=== PATIENT | male | born 1965 | race Caucasian/White ===

== ENCOUNTER → 2019-07-15 17:49 | Outpatient (CLI) | payer MEDICAID, SELFPAY ==
[2019-07-15 18:48] LABS: Basophils # 0.1 K/mm3 (0-0.2); Basophils % 1.5 % (0.1-2.0); Eosinophils # 0.4 K/mm3 (0.0-0.4); Eosinophils % 4.3 % (0.1-12.0); Hematocrit 39.3 % (42.0-52.0); Hemoglobin 12.5 g/dL (14.1-18.0); Lymphocytes # 1.8 K/mm3 (0.7-4.5); Lymphocytes % 20.5 % (10-50); Mean Corpuscular HGB Conc 31.8 g/dL (31.8-35.4); Mean Corpuscular Hemoglobin 30.9 pg (27.0-31.2); Mean Corpuscular Volume 97.3 fl (80-94); Monocytes # 0.5 K/mm3 (0.1-1.0); Monocytes % 5.5 % (1.7-9.3); Neutrophils # 5.9 K/mm3 (1.8-7.8); Neutrophils % 68.1 % (37.0-80.0); Platelet Count 282 K/mm3 (142-424); Red Blood Count 4.04 M/mm3 (4.60-6.20); Red Cell Distribution Width 13.5 % (11.5-17.5); White Blood Count 8.7 K/mm3 (4.8-10.8)
[2019-07-15 19:40] LABS: Chloride 101 mmol/L (98-107); Potassium 4.8 mmoL/L (3.5-5.1); Sodium 136 mmol/L (136-145)
[2019-07-15 19:42] LABS: Alanine Aminotransferase 18 U/L (12-78); Alkaline Phosphatase 76 U/L (38-126); Aspartate Amino Transferase 22 U/L (17-59); Bilirubin,Total 0.3 mg/dl (0.2-1.3); Blood Urea Nitrogen 15 mg/dl (9-20); Estimated Glomerular Filt Rate 101 ml/min (>60); GFR (African American) 122 ML/MIN (>60)
[2019-07-15 19:43] LABS: Albumin Level 3.9 g/dl (3.5-5.0); Albumin/Globulin Ratio 1.4 (1.1-1.8); Anion Gap 9.8 mEq/L (5-15); Calcium 9.4 mg/dl (8.4-10.2); Carbon Dioxide 30 mmol/L (22.0-30.0); Chol/HDL Ratio 2.6 (1-3.5); Cholesterol 170 mg/dl (140-200); Globulin 2.7 g/dL (1.3-3.2); Glucose 103 mg/dl (74-100); HDL Cholesterol 65 mg/dl (40-60); Total Protein,Serum 6.6 g/dl (6.3-8.2); Triglycerides 88 mg/dl (30-150); VLDL Cholesterol 18 mg/dL (0-40)
[2019-07-15 19:54] LABS: Direct LDL Cholesterol 119.87 mg/dL (100-129)
[2019-07-15 20:00] LABS: T4 (Thyroxine) 6.5 ug/dl (5.53-11.0)
[2019-07-15 20:14] LABS: Thyroid Stimulating Hormone 1.75 uIU/mL (0.465-4.68)
[2019-07-17 10:50] LABS: Testosterone,Total 460 ng/dL (264-916); Vitamin D 25 Hydroxy 13.6 ng/mL (30.0-100.0)
== END ==
PROVIDERS: Visit Provider Emergency Medicine
DX: R53.83 Other fatigue (principal); E55.9 Vitamin D deficiency, unspecified
CPT/HCPCS: 80053; 80061; 82652; 84403; 84436; 84443; 85025

== ENCOUNTER → 2019-07-24 17:04 | Outpatient (CLI) | payer MEDICAID, SELFPAY ==
[2019-07-26 05:39] LABS: Iron 69 ug/dL (38-169); UIBC 220 ug/dL (111-343)
[2019-07-26 09:25] LABS: Iron Saturation 24 % (15-55)
== END ==
PROVIDERS: Visit Provider Physician Assistant
DX: D64.9 Anemia, unspecified (principal)
CPT/HCPCS: 83540; 83550

== ENCOUNTER → 2019-07-25 13:24 | Outpatient (CLI) | payer MEDICAID, SELFPAY ==
[2019-07-25 14:00] LABS: Occult Blood,Stool Negative (Negative)
== END ==
PROVIDERS: Visit Provider Physician Assistant
DX: D64.9 Anemia, unspecified (principal); R53.83 Other fatigue
CPT/HCPCS: 82272; G0328

== ENCOUNTER → 2019-09-09 16:26 | Outpatient (CLI) | payer MEDICAID, SELFPAY ==
[2019-09-09 19:25] LABS: Coronavirus 19 IgG Antibody Negative (Negative); Coronavirus 19 IgM Antibody Negative (Negative)
== END ==
PROVIDERS: Visit Provider Emergency Medicine
DX: Z01.818 Encounter for other preprocedural examination (principal); G47.33 Obstructive sleep apnea (adult) (pediatric); G47.00 Insomnia, unspecified; R40.0 Somnolence
CPT/HCPCS: 36415; 86328

== ENCOUNTER → 2019-09-10 20:03 | Outpatient (CLI) | payer MEDICAID, SELFPAY | PROVIDERS: PCP Emergency Medicine; Visit Provider Emergency Medicine | DX: G47.33 Obstructive sleep apnea (adult) (pediatric) (principal); G47.00 Insomnia, unspecified; R40.0 Somnolence | CPT/HCPCS: 95810 ==

== ENCOUNTER 2019-10-09 09:28 | Emergency (ER) | payer MEDICAID, SELFPAY ==
[2019-10-09] VITALS (14 sets, daily range): BP systolic 95–128; BP diastolic 67–79; PULSE 81–96; RESP 12–20; TEMP 36.8; O2SAT 88–99; BMI 30.3
--- NOTE | 2019-10-09 09:52 | XR_ITS ---
PROCEDURE: XR WRIST LT MIN 3V CLINICAL INDICATION: fall Posttraumatic pain COMPARISON: No exams were available for comparison FINDINGS: No obvious fracture or dislocation. Prominent bony hypertrophic changes are present at the ulnar styloid with ununited ossification center or old fracture. IMPRESSION: No acute findings. Dictated by: Hans Macias MD 10/09/2019 11:11 Electronically signed by Hans Macias MD in [facility] 10/09/2019 11:11
--- NOTE | 2019-10-09 09:52 | XR_ITS ---
PROCEDURE: XR ELBOW LT 2V CLINICAL INDICATION: fall Posttraumatic pain COMPARISON: No exams were available for comparison FINDINGS: There is posterior subluxation the ulna with fracture noted at the base of the coracoid process. The humerus is subluxed anteriorly by 9 mm. The coracoid process fracture fragment is displaced distally by 10 mm. No other fractures are apparent however, imaging is somewhat limited due to inability to properly position the patient IMPRESSION: Fracture of the coracoid process with anterior subluxation of the humerus at the elbow joint. Dictated by: Hans Macias MD 10/09/2019 11:10 Electronically signed by Hans Macias MD in [facility] 10/09/2019 11:10
--- NOTE | 2019-10-09 10:08 | PC.NURSE ---
Radiology notified of exams needed.
--- NOTE | 2019-10-09 10:12 | PC.NURSE ---
Patient with radiology.
--- NOTE | 2019-10-09 11:08 | PC.NURSE ---
Pt to be moved from room 11 to room 2 once xray is read to do conscious sedation.
--- NOTE | 2019-10-09 11:48 | XR_ITS ---
PROCEDURE: XR ELBOW LT 2V CLINICAL INDICATION: post reduction COMPARISON: XR ELBOW LT 2V from 10/09/2019 FINDINGS: Postreduction images are obtained. There has been interval reduction of the anterior subluxation the humerus. Minimally displaced fracture noted involving the coracoid process. The the radial head however is dislocated laterally on the postreduction AP view. IMPRESSION: Reduction of the anterior subluxation of the distal humerus with fracture of the coracoid process once again noted. The radial head now appears subluxed laterally. Dictated by: Hans Macias MD 10/09/2019 12:37 Electronically signed by Hans Macias MD in [place] 10/09/2019 12:37
--- NOTE | 2019-10-09 12:16 | PC.NURSE ---
Dr. Sparrow pagealejandra.
--- NOTE | 2019-10-09 12:17 | PC.NURSE ---
Dr presley speaking with Dr Sparrow at this time.
--- NOTE | 2019-10-09 12:46 | HMH.EDFALL ---
ED Disposition Clinical Impression: Dislocation of humerus, anterior closed, Elbow fracture Disposition: Home, Self-Care Condition on Discharge: Good Instructions: DI for Moderate Sedation Additional Instructions: These call Dr. Sparrow for an appointment.[phone] Prescriptions: Hydrocodone/Acetaminophen [Hydrocodone-Acetamin 10-325 mg] 1 each PO Q6 PRN 3 Days #12 tab PRN Reason: Breakthru Moderate Pain Prescription Printed Referrals: Uriel Damon MD [Primary Care Provider] - - Critical Care Critical Care Time: No Attestation: On 10/09/19, the high probability of a clinically significant, sudden or life threatening deterioration of the following system(s) required my full and direct attention, intervention and personal management. The time I documented below is in addition to time spent performing reported procedures but includes the following listed in this critical care notation. Medical Decision Making - Medical Records Medical records reviewed: Yes: I reviewed the patient's medical records. - John Inquiry Pt receiving controlled substance: Yes John was queried for this patient: Yes Reference #:: 01 Risks and benefits of using a controlled substance: were discussed with pt by me Vital Signs: 10/09/19 09:29 10/09/19 09:59 10/09/19 10:29 Pulse Rate [Radial] 92 H 96 H 88 Respiratory Rate 20 18 18 Blood Pressure [Right Arm] 95/79 L 95/75 L 110/67 Blood Pressure Mean [Right Arm] 84 81 81 Blood Pressure Source [Right Arm] Automatic Cuff Automatic Cuff Automatic Cuff Blood Pressure Position [Right Arm] Sitting Supine Supine 02 Sat by Pulse Oximetry 99 96 98 Oxygen Delivery Method Room Air Room Air Room Air Oxygen Flow Rate (LPM) 10/09/19 10:59 10/09/19 11:29 10/09/19 11:35 Pulse Rate [Radial] 90 81 81 Respiratory Rate 18 12 12 Blood Pressure [Right Arm] 122/78 122/73 122/73 Blood Pressure Mean [Right Arm] 92 89 89 Blood Pressure Source [Right Arm] Automatic Cuff Automatic Cuff Automatic Cuff Blood Pressure Position [Right Arm] Supine Supine Sitting 02 Sat by Pulse Oximetry 99 94 L 94 L Oxygen Delivery Method Room Air Nasal Cannula Nasal Cannula Oxygen Flow Rate (LPM) 2 2 10/09/19 11:40 10/09/19 11:46 10/09/19 11:50 Pulse Rate [Radial] 81 86 94 H Respiratory Rate 18 18 14 Blood Pressure [Right Arm] 128/75 113/76 125/79 Blood Pressure Mean [Right Arm] 92 88 94 Blood Pressure Source [Right Arm] Automatic Cuff Automatic Cuff Automatic Cuff Blood Pressure Position [Right Arm] Supine Supine Supine 02 Sat by Pulse Oximetry 93 L 88 L 94 L Oxygen Delivery Method Nasal Cannula Nasal Cannula Nasal Cannula Oxygen Flow Rate (LPM) 2 2 2 10/09/19 11:55 10/09/19 11:59 10/09/19 12:00 Pulse Rate [Radial] 82 85 82 Respiratory Rate 18 14 18 Blood Pressure [Right Arm] 118/69 125/79 112/73 Blood Pressure Mean [Right Arm] 85 94 86 Blood Pressure Source [Right Arm] Automatic Cuff Automatic Cuff Automatic Cuff Blood Pressure Position [Right Arm] Supine Supine Supine 02 Sat by Pulse Oximetry 98 94 L 98 Oxygen Delivery Method Nasal Cannula Nasal Cannula Nasal Cannula Oxygen Flow Rate (LPM) 2 2 2 10/09/19 12:09 Pulse Rate [Radial] 82 Respiratory Rate 18 Blood Pressure [Right Arm] 112/73 Blood Pressure Mean [Right Arm] 86 Blood Pressure Source [Right Arm] Automatic Cuff Blood Pressure Position [Right Arm] 02 Sat by Pulse Oximetry 98 Oxygen Delivery Method Nasal Cannula Oxygen Flow Rate (LPM) 2 - Lab Data Lab results reviewed: Yes: I reviewed the patient's lab results. Orders (Tests/Meds): ED MEDICATIONS Discontinued Medications Generic Name Dose Route Start Last Admin Trade Name Morenita PRN Reason Stop Dose Admin Acetaminophen 650 mg 10/09/19 09:52 10/09/19 09:55 Acetaminophen 325mg Tab PO 10/09/19 09:53 650 mg ONCE ONE Administration Ibuprofen 600 mg 10/09/19 09:52 10/09/19 09:55 Motrin 600mg Tablet PO 10/09/19 09:53 600 mg ONCE ONE Administration Li
--- NOTE | 2019-10-09 17:43 | PC.NURSE ---
Per Dr Sparrow's request, I am calling [facility] at this time to arrange a follow up for pt.
--- NOTE | 2019-10-09 18:01 | PC.NURSE ---
Dr presley speaking with Dr Mayers at [facility] at this time.
--- NOTE | 2019-10-09 18:06 | PC.NURSE ---
speaking with Dr. Sparrow. Dr. Sparrow advises that he would like the pt to come back to the ED tomorrow at 1pm for him to come down and try and reduce his elbow.
--- NOTE | 2019-10-09 18:13 | PC.NURSE ---
called and spoke with patient and advised him Dr. Sparrow wanted him to return to the ED tomorrow at 1pm so he could come down and see him and possibly do another reduction on the patient. Pt agreeable and advises he will be here at 1pm. Pt advises he is in no pain at this time.
== END 2019-10-09 13:21 | disposition home or self-care (01) ==
PROVIDERS: Emergency Provider Family Medicine; PCP Emergency Medicine
DX: S42.492A Other displaced fracture of lower end of left humerus, initial encounter for closed fracture (principal); W11.XXXA Fall on and from ladder, initial encounter; Y92.019 Unspecified place in single-family (private) house as the place of occurrence of the external cause; S61.511A Laceration without foreign body of right wrist, initial encounter
CPT/HCPCS: 29105; 24675; 73070; 73110; 96374; 96375; 99284; J2405

== ENCOUNTER 2019-10-10 13:15 | Emergency (ER) | payer MEDICAID, SELFPAY ==
[2019-10-10] VITALS (7 sets, daily range): BP systolic 125–180; BP diastolic 80–100; PULSE 62–87; RESP 11–18; TEMP 36.7–36.9; O2SAT 97–100; BMI 30.3
--- NOTE | 2019-10-10 13:29 | PC.NURSE ---
Dr. Sparrow notified of patients arrival.
--- NOTE | 2019-10-10 13:42 | HMH.EDGENADL ---
ED Disposition Clinical Impression: Fracture dislocation of left elbow joint Qualifiers: Encounter type: initial encounter Fracture type: closed Qualified Code(s): S42.402A - Unspecified fracture of lower end of left humerus, initial encounter for closed fracture Disposition: Home, Self-Care Condition on Discharge: Good Instructions: How to Take Care of Your Splint, DI for Moderate Sedation Additional Instructions: Follow-up at orthopedics. Maintain splint and sling until then. Percocet as needed for pain. Additional instructions for CONTROLLED SUBSTANCES: You have been prescribed a medication that is a controlled substance. Controlled substances include pain medications known as opiates and sedative nerve medications known as benzodiazepines. Tramadol, fioricet, and gabapentin are also controlled substances. Some common opiates include: Codeine (such as Tylenol #3) Hydrocodone (Vicodin, Lortab, Lorcet, [place]) Oxycodone (Percocet, Percodan, Oxycodone, Oxy IR) Some common benzodiazepines include: Diazepam (Valium) Lorazepam (Ativan) Alprazolam (Xanax) Clonazepam (Klonopin) Oxazepam (Serax) All of these controlled substances are highly addictive and frequently abused. Misuse can and frequently does lead to addiction as well as overdose and . Medication should be stored in a locked cabinet or other secure storage unit. Do not store the medication in a motor vehicle. Short term supplies, 3 days or less, are prescribed because of the highly addictive nature of the medication. Any of the controlled substance medication NOT taken should be disposed of properly and NOT SAVED. The recommended method of disposing of unused medications is: Place the medicines in a sealable plastic bag. If the medicine is a solid, crush it or add water to dissolve it. Add something undesirable (cat litter, coffee grounds, etc.) Dispose of sealed bag in household trash Do not flush or pour unused medicines down a sink or drain. Controlled substances should not be shared, given away or sold. Because of the addictive nature and frequent abuse, these medications are sometimes stolen. These medications should be kept in a safe place where they cannot be stolen. Do not keep them in your car or purse. Lost or stolen prescriptions for controlled substances WILL NOT BE REFILLED in this emergency department, regardless of whether a police report was filed. Prescriptions: Oxycodone HCl/Acetaminophen [Percocet 5/325mg tablet] 1 tab PO Q6HP PRN #20 tab PRN Reason: Moderate To Severe Pain Transmission Status: Received by [facility] Referrals: Uriel Damon MD [Primary Care Provider] - - Critical Care Critical Care Time: No Attestation: On 10/10/19, the high probability of a clinically significant, sudden or life threatening deterioration of the following system(s) required my full and direct attention, intervention and personal management. The time I documented below is in addition to time spent performing reported procedures but includes the following listed in this critical care notation. Medical Decision Making - John Inquiry Pt receiving controlled substance: Yes John was queried for this patient: No Reason not queried -: Emergent pt cond-no time Risks and benefits of using a controlled substance: were discussed with pt by me Vital Signs: 10/10/19 13:25 10/10/19 15:10 Temperature 98.4 F Temperature Source Oral Pulse Rate [Radial] 76 62 Respiratory Rate 11 L 12 Blood Pressure [Right Arm] 180/100 H 154/90 H Blood Pressure Mean [Right Arm] 126 111 Blood Pressure Source [Right Arm] Automatic Cuff Automatic Cuff Blood Pressure Position [Right Arm] Sitting Sitting 02 Sat by Pulse Oximetry 97 97 Oxygen Delivery Method Room Air Room Air Orders (Tests/Meds): ED MEDICATIONS Generic Name Dose Route Start Last Admin Trade Name Freq PRN Reason Stop Dose Admin Sodium Chloride 1,000 m
--- NOTE | 2019-10-10 14:32 | PC.NURSE ---
Dr Sparrow and his student here for reduction.
--- NOTE | 2019-10-10 14:50 | XR_ITS ---
PROCEDURE: XR ELBOW RT 2V CLINICAL INDICATION: post reduction COMPARISON: XR ELBOW LT 2V from 10/09/2019 XR ELBOW LT 2V from 10/09/2019 FINDINGS: There is been reduction of the radial head dislocation. There is also reduction the anterior subluxation of the distal humerus. Minimally displaced fracture involves coracoid process medially. The study is obtained through a splint. IMPRESSION: Post reduction of the radial head anterior humeral dislocations with fracture of the coracoid process Dictated by: Hans Macias MD 10/10/2019 15:22 Electronically signed by Hans Macias MD in [place] 10/10/2019 15:22
== END 2019-10-10 15:31 | disposition home or self-care (01) ==
PROVIDERS: Emergency Provider Emergency Medicine; PCP Emergency Medicine
DX: S42.492A Other displaced fracture of lower end of left humerus, initial encounter for closed fracture (principal); W11.XXXA Fall on and from ladder, initial encounter; Y92.9 Unspecified place or not applicable; F17.290 Nicotine dependence, other tobacco product, uncomplicated
CPT/HCPCS: 29105; 24505; 73070; 96365; 96375; 99152; 99284

== ENCOUNTER → 2019-11-01 11:06 | Outpatient (CLI) | payer MEDICAID, SELFPAY | PROVIDERS: PCP Emergency Medicine; Visit Provider Specialist | DX: J44.9 Chronic obstructive pulmonary disease, unspecified (principal); R09.02 Hypoxemia | CPT/HCPCS: 94060; 94618; 94726; 94729 ==

== ENCOUNTER → 2019-11-04 12:56 | Outpatient (CLI) | payer MEDICAID, SELFPAY | PROVIDERS: PCP Emergency Medicine; Visit Provider Specialist | DX: G47.34 Idiopathic sleep related nonobstructive alveolar hypoventilation (principal); G47.30 Sleep apnea, unspecified; J44.9 Chronic obstructive pulmonary disease, unspecified | CPT/HCPCS: G0399 ==

== ENCOUNTER → 2019-12-10 08:37 | Outpatient (CLI) | payer MEDICAID, SELFPAY ==
[2019-12-10 09:11] LABS: Basophils # 0.1 K/mm3 (0-0.2); Basophils % 1.1 % (0.1-2.0); Eosinophils # 0.4 K/mm3 (0.0-0.4); Eosinophils % 5.2 % (0.1-12.0); Hematocrit 39.7 % (42.0-52.0); Hemoglobin 13.2 g/dL (14.1-18.0); Lymphocytes % 27.4 % (10-50); Mean Corpuscular HGB Conc 33.2 g/dL (31.8-35.4); Mean Corpuscular Hemoglobin 31.7 pg (27.0-31.2); Mean Corpuscular Volume 95.5 fl (80-94); Monocytes # 0.3 K/mm3 (0.1-1.0); Neutrophils # 4.6 K/mm3 (1.8-7.8); Neutrophils % 62.3 % (37.0-80.0); Platelet Count 269 K/mm3 (142-424); Red Blood Count 4.16 M/mm3 (4.60-6.20); Red Cell Distribution Width 13.3 % (11.5-17.5); White Blood Count 7.4 K/mm3 (4.8-10.8)
[2019-12-10 12:10] LABS: Ferritin 41.4 ng/ml (17.9-464)
[2019-12-10 12:52] LABS: Vitamin B12 300 pg/mL (239-931)
== END ==
PROVIDERS: Visit Provider Nurse Practitioner Family
DX: E83.10 Disorder of iron metabolism, unspecified (principal); R53.83 Other fatigue
CPT/HCPCS: 36415; 82607; 82728; 85025

== ENCOUNTER → 2020-02-18 07:51 | Outpatient (CLI) | payer MEDICAID, SELFPAY ==
[2020-02-18 11:20] LABS: Ferritin 43.5 ng/ml (17.9-464)
== END ==
PROVIDERS: Nurse Practitioner Family; PCP Emergency Medicine; Visit Provider Internal Medicine Pulmonary Disease
DX: R06.00 Dyspnea, unspecified (principal); E83.10 Disorder of iron metabolism, unspecified; G25.81 Restless legs syndrome; J44.9 Chronic obstructive pulmonary disease, unspecified; Z72.0 Tobacco use
CPT/HCPCS: 36415; 82728; 93306

== ENCOUNTER → 2020-02-27 13:27 | Outpatient (CLI) | payer MEDICAID, SELFPAY | PROVIDERS: PCP Emergency Medicine; Visit Provider Nurse Practitioner Family | DX: G47.33 Obstructive sleep apnea (adult) (pediatric) (principal); G47.00 Insomnia, unspecified; R53.83 Other fatigue; G25.81 Restless legs syndrome | CPT/HCPCS: 95806 ==

== ENCOUNTER → 2020-03-25 06:16 | Outpatient (CLI) | payer MEDICAID, SELFPAY ==
--- NOTE | 2020-03-25 | CA_ITS ---
APPROVED REPORT Exam: Pharmacologic Technologist: Mala Englishde Ht: 6 ft 1 in Wt: 236 lbs BSA: 2.31 m2 HR: 105 bpm BP: 130/84 mmHg Indications: Chest pain Medical History Medications: Pantoprazole,,,,, Albuterol,,,,, Quetiapine,,,,, Trazodone,,,,, BuPRenorphinE-Naloxone,,,,, StIOLto Respimat,,,,, Stress Test Details Test: LEXISCAN HR Resting HR: 114 bpm Max Heart Rate (APMHR): 166 bpm Max HR Achieved: 125 bpm Target HR (85% APMHR): 141 bpm % of APMHR: 75 Recovery HR: 101 bpm BP Resting BP: 130.0/84.0 mmHg Max BP: 151.0/78.0 mmHg Recovery BP: 134.0/88.0 mmHg ECG Resting ECG: Sinus tachycardia, otherwise normal Clinical Exercise duration: 04:00 min Highest Stage Achieved: Exercise capacity: 1.0 METs Stress ECG Conclusion Switched from exercise due to very limited exercise tolerance (only able to walk 1:30 on Alejandro Protocol). Symptoms: Shortness of air. No chest pain. Arrhythmias/Ectopy: None ST-T Change: No significant changes. Conclusion: Unremarkable Lexiscan stress. Myoview images reported separately. Electronically signed by : Ryan Jean-Baptiste, 03/25/2020 18:34:54
--- NOTE | 2020-03-25 06:16 | NM_ITS ---
APPROVED REPORT Exam: Nuclear Stress Test Indication: TOB USE, C.P. Patient Location: Outpatient Stress Tech: Mala Rudd [place] Tech:Mirna Arevalo, ARRT, RT (R)(N) Ht: 6 ft 1 in Wt: 231 lbs HR: 105 bpm BP: 130/84 mmHg BSA: 2.29 m2 BMI: 30.4 History: TOB USE, C.P Procedure: Patient received a 0.4 mg of intravenous Lexiscan, resting heart rate 105 bpm, resting blood pressure 130/84 mmHg, with Lexiscan maximum heart rate achived was 122 bpm which is Less than 85 % of the maximum predicted heart rate and blood pressure was 130/88 mmHg. With Lexiscan, patient denied any complaint of chest pain. Electrocardiogram Resting electrocardiogram showed sinus rhythm, with Lexiscan there is less than 1.[address] segment depression noted from the baseline EKG. The EKG portion of the Lexiscan is nondiagnostic. Cardiac Stress and Resting SPECT Images: Cardiac Stress and Resting SPECT images were obtained using technetium 99m Myoview 32.0 mCi stress and 10.68 mCi at rest. Gated SPECT for analysis of segmental wall motion and calculation of the ejection fraction also done. Cardiac stress and resting SPECT images show uniform myocardial activity without segmental perfusion abnormality, computer derived ejection fraction is 62% with no regional wall motion abnormality, right ventricle is normal size and contractility. Conclusion: 1. The EKG portion of the Lexiscan is nondiagnostic. 2. No scintigraphic evidence of reversible ischemia seen, computer derived ejection fraction is 62% with no regional wall motion abnormality, right ventricle is normal size and contractility. 3. Normal Lexiscan Myoview study. Electronically signed by : Ryan Jean-Baptiste, 03/25/2020 18:42:10
--- NOTE | 2020-03-25 08:24 | HMH.ITSHM ---
Current Home Medications as stated by this patient Bill España or patient account representative. []TRAZODONE SERIQUIL SOBOXEN INHALER OMEPRAZOLE
== END ==
PROVIDERS: PCP Emergency Medicine; Visit Provider Emergency Medicine
DX: R07.9 Chest pain, unspecified (principal); R12 Heartburn
CPT/HCPCS: 78452; 93017; A9502; J2785

== ENCOUNTER → 2020-05-22 10:51 | Outpatient (CLI) | payer MEDICAID, SELFPAY ==
[2020-05-22 11:20] LABS: Basophils # 0.1 K/mm3 (0-0.2); Basophils % 0.7 % (0.1-2.0); Eosinophils # 0.5 K/mm3 (0.0-0.4); Eosinophils % 5.3 % (0.1-12.0); Hematocrit 41.8 % (42.0-52.0); Lymphocytes # 2.4 K/mm3 (0.7-4.5); Lymphocytes % 26.2 % (10-50); Mean Corpuscular HGB Conc 31.2 g/dL (31.8-35.4); Mean Corpuscular Hemoglobin 31.2 pg (27.0-31.2); Mean Platelet Volume 7.3 fl (7.4-10.4); Monocytes # 0.4 K/mm3 (0.1-1.0); Neutrophils # 5.9 K/mm3 (1.8-7.8); Neutrophils % 63.8 % (37.0-80.0); Platelet Count 293 K/mm3 (142-424); Red Blood Count 4.18 M/mm3 (4.60-6.20); Red Cell Distribution Width 13.9 % (11.5-17.5); White Blood Count 9.2 K/mm3 (4.8-10.8)
== END ==
PROVIDERS: Visit Provider Internal Medicine Pulmonary Disease
DX: J45.909 Unspecified asthma, uncomplicated (principal)
CPT/HCPCS: 36415; 85025

== ENCOUNTER → 2020-05-27 14:02 | Outpatient (CLI) | payer MEDICAID, SELFPAY ==
[2020-05-27 14:34] LABS: D-Dimer 0.95 ug/mL (0.0-0.5)
[2020-05-29 14:02] LABS: Alpha-1-Antitrypsin 167 mg/dL (101-187)
== END ==
PROVIDERS: Visit Provider Internal Medicine Pulmonary Disease
DX: J44.9 Chronic obstructive pulmonary disease, unspecified (principal)
CPT/HCPCS: 82103; 85378

== ENCOUNTER → 2020-06-02 14:05 | Outpatient (CLI) | payer MEDICAID, SELFPAY ==
--- NOTE | 2020-06-02 14:05 | CT_ITS ---
PROCEDURE: CT ANGIO CHEST CLINCIAL INDICATION: Dyspnea / concerned for CTE-PH Shortness of breath chronic thromboembolic disease COMPARISON: No exams were available for comparison TECHNIQUE: IV Contrast: 70ML Isovue 370 Axial images obtained with sagittal and coronal reformats. All CT scans at the facility use one or more dose reduction, viz: automated exposure control, ma/kV adjustment per patient size (including targeted exams where dose is matched to indication, i.e. head), or iterative reconstruction technique. FINDINGS: HEART AND MEDIASTINAL STRUCTURES: No evidence of pulmonary embolus, aortic aneurysm, or aortic dissection.. No linear filling defects evident within the pulmonary arteries. No evidence of pulmonary arterial hypertension. No peripheral filling defects within the pulmonary arteries. The RV/LV ratio is less than 1. No evidence septal flattening or bowing. No mediastinal or hilar mass. Coronary artery calcifications are present LUNGS AND PLEURAL SPACES: Paraseptal emphysematous changes are present with COPD changes. There is a 10 mm noncalcified nodule within the right upper lobe medially in the as ago esophageal recess. The margins are fairly smooth. There are dependent changes in the lower lobes posteriorly 5 mm nodules present in the right major fissure inferiorly and may be due to small lymph node. BONY STRUCTURES: No acute bony abnormalities apparent. UPPER ABDOMEN: Fatty liver ADDITIONAL FINDINGS: There are few small axillary lymph nodes.. Gynecomastia IMPRESSION: 1. No evidence of acute pulmonary embolus. No evidence of chronic pulmonary embolus. Chronic thromboembolic disease may be better evaluated with nuclear medicine VQ scan. 2. Suspicious 10 mm nodule within the right lower lobe. If patient has old studies for comparison then would recommend comparison. There are no old exams available at this institution. If there are no old exams for comparison then, PET CT would be suggested for further evaluation. This is not in a good area for percutaneous biopsy. 3. COPD with paraseptal emphysema and dependent changes in the lung bases. 4. Coronary artery disease with coronary artery calcification Dictated by: Hans Macias MD 06/04/2020 14:39 Hans Macias MD in [place] 06/04/2020 14:39
== END ==
PROVIDERS: PCP Emergency Medicine; Visit Provider Internal Medicine Pulmonary Disease
DX: R06.00 Dyspnea, unspecified (principal); J44.9 Chronic obstructive pulmonary disease, unspecified; Z71.6 Tobacco abuse counseling; Z72.0 Tobacco use
CPT/HCPCS: 71275; Q9967

== ENCOUNTER → 2020-07-09 07:27 | Outpatient (CLI) | payer MEDICAID, SELFPAY | PROVIDERS: PCP Emergency Medicine; Visit Provider Internal Medicine Pulmonary Disease | DX: R06.09 Other forms of dyspnea (principal) | CPT/HCPCS: 94060; 94726; 94729 ==

== ENCOUNTER → 2020-09-03 06:07 | Outpatient (CLI) | payer MEDICAID, SELFPAY ==
--- NOTE | 2020-09-03 06:08 | CT_ITS ---
PROCEDURE: CT CHEST WO CON The the the the CLINICAL INDICATION: F/U Follow-up nodule COMPARISON: CT CT ANGIO CHEST from 06/02/2020 TECHNIQUE: Axial images obtained with sagittal and coronal reformats. All CT scans at the facility use one or more dose reduction, viz: automated exposure control, ma/kV adjustment per patient size (including targeted exams where dose is matched to indication, i.e. head), or iterative reconstruction technique. FINDINGS: HEART AND MEDIASTINAL STRUCTURES: Scattered small nodes are present within the mediastinum and do not appear significantly changed. There is diffuse coronary artery calcification. LUNGS AND PLEURAL SPACES: Paraseptal emphysematous changes with some scattered areas of scarring. There is a stable 10 mm nodule within the region of the superior segment of the right lower lobe. This may actually be within the major fissure and could represent a fissural node. This is not significantly changed. No new nodules are evident. BONY STRUCTURES: No acute bony abnormalities apparent. UPPER ABDOMEN: Fatty liver ADDITIONAL FINDINGS: No other significant abnormalities. IMPRESSION: Stable CT appearance of the chest. No change in the nodule within the superior segment of the right lower lobe. This may actually be a nodule within the fissure and could represent a fissural lymph node. Six-month follow-up recommended. Dictated by: Hans Macias MD 09/03/2020 14:21 Hans Macias MD in [facility] 09/03/2020 14:21
== END ==
PROVIDERS: PCP Emergency Medicine; Visit Provider Internal Medicine Pulmonary Disease
DX: R91.1 Solitary pulmonary nodule (principal)
CPT/HCPCS: 71250

== ENCOUNTER → 2020-12-15 14:16 | Outpatient (CLI) | payer MEDICAID, SELFPAY ==
[2020-12-15 14:28] LABS: Basophils # 0.2 K/mm3 (0-0.2); Basophils % 1.9 % (0.1-2.0); Eosinophils # 0.3 K/mm3 (0.0-0.4); Eosinophils % 3.3 % (0.1-12.0); Hematocrit 43.6 % (42.0-52.0); Hemoglobin 14.3 g/dL (14.1-18.0); Lymphocytes % 23.4 % (10-50); Mean Corpuscular HGB Conc 32.8 g/dL (31.8-35.4); Mean Corpuscular Hemoglobin 32.4 pg (27.0-31.2); Mean Corpuscular Volume 98.8 fl (80-94); Mean Platelet Volume 10.7 fl (7.4-10.4); Monocytes # 0.3 K/mm3 (0.1-1.0); Monocytes % 3.2 % (1.7-9.3); Neutrophils % 68.2 % (37.0-80.0); Platelet Count 342 K/mm3 (142-424); Red Blood Count 4.42 M/mm3 (4.60-6.20); Red Cell Distribution Width 13.1 % (11.5-17.5); White Blood Count 8.7 K/mm3 (4.8-10.8)
[2020-12-15 16:41] LABS: 25-OH Vitamin D, Total 40.2 ng/mL (30-100)
[2020-12-15 17:17] LABS: Alanine Aminotransferase 23 U/L (12-78); Albumin Level 4.3 g/dl (3.5-5.0); Albumin/Globulin Ratio 1.5 (1.1-1.8); Alkaline Phosphatase 92 U/L (38-126); Aspartate Amino Transferase 23 U/L (17-59); Bilirubin,Total 0.3 mg/dl (0.2-1.3); Blood Urea Nitrogen 15 mg/dl (9-20); Calcium 9.5 mg/dl (8.4-10.2); Carbon Dioxide 29 mmol/L (22.0-30.0); Chloride 103 mmol/L (98-107); Chol/HDL Ratio 5.9 (1-3.5); Cholesterol 230 mg/dl (140-200); Estimated Glomerular Filt Rate 88 ml/min (>60); GFR (African American) 106 ML/MIN (>60); Globulin 2.8 g/dL (1.3-3.2); Glucose 116 mg/dl (74-100); HDL Cholesterol 39 mg/dl (40-60); Sodium 141 mmol/L (136-145); Total Protein,Serum 7.1 g/dl (6.3-8.2); Triglycerides 149 mg/dl (30-150); VLDL Cholesterol 30 mg/dL (0-40)
[2020-12-15 17:28] LABS: Direct LDL Cholesterol 156.35 mg/dL (100-129)
[2020-12-15 17:48] LABS: Prostate Specific Ag Screen 3.2 ng/ml (0.0-4.0); Thyroid Stimulating Hormone 0.81 uIU/mL (0.465-4.68)
[2020-12-15 17:55] LABS: Free T4 (Free Thyroxine) 1.01 ng/dl (0.78-2.19)
== END ==
PROVIDERS: Visit Provider Emergency Medicine
DX: I10 Essential (primary) hypertension (principal); D64.9 Anemia, unspecified; E55.9 Vitamin D deficiency, unspecified; E66.9 Obesity, unspecified; Z68.27 Body mass index [BMI] 27.0-27.9, adult; Z12.5 Encounter for screening for malignant neoplasm of prostate
CPT/HCPCS: 80053; 80061; 82306; 84439; 84443; 85025; G0103

== ENCOUNTER → 2021-06-07 10:33 | Outpatient (CLI) | payer MEDICAID, SELFPAY ==
--- NOTE | 2021-06-07 10:33 | MR_ITS ---
FINAL REPORT CLINICAL HISTORY: back pain. rt sided leg pain, numbness, and tingling [id number]. no injury or trauma. FINDINGS: Multiplanar MR imaging of the lumbar spine was performed without contrast. On the sagittal T2-weighted images, multilevel disc degeneration and endplate changes are seen seen. There is mild leftward curvature. The vertebral alignment is otherwise normal. There is no evidence of fracture. No bony mass is identified. The conus is seen at approximately the L1 level and has an unremarkable appearance. T12-L1: Annular disc bulge with moderate bilateral neuroforaminal narrowing. L1-2: Annular disc bulge with facet arthropathy and osteophytes. There is moderate bilateral neuroforaminal narrowing. L2-3: Annular disc bulge with facet arthropathy and osteophytes. There is moderate bilateral neuroforaminal narrowing. L3-4: Annular disc bulge with facet arthropathy and osteophytes. There is a right posterolateral disc protrusion with moderate right and mild left neuroforaminal narrowing. L4-5: Annular disc bulge with facet arthropathy and osteophytes. There is moderate right and severe left neuroforaminal narrowing. There is a small right paracentral disc protrusion. L5-S1: Annular disc bulge with facet arthropathy. There is severe bilateral neuroforaminal narrowing. Partial lumbarization is noted of S1. IMPRESSION: Multilevel degenerative disc disease with severe bilateral neuroforaminal narrowing at L5-S1 and partial lumbarization of S1. Reviewed, Interpreted and Dictated by Kiran Nichols III, MD Transcribed by Zhane Dhillon Authenticated by Kiran Nichols III, MD on 06/07/2021 12:55:31 PM [facility]
== END ==
PROVIDERS: PCP Emergency Medicine; Visit Provider Emergency Medicine
DX: M54.50 Low back pain, unspecified (principal)
CPT/HCPCS: 72148; 76376

== ENCOUNTER → 2021-06-09 14:39 | Outpatient (CLI) | payer MEDICAID, SELFPAY ==
--- NOTE | 2021-06-09 14:40 | CT_ITS ---
PROCEDURE INFORMATION: Exam: CT Chest Without Contrast; Diagnostic Exam date and time: 06/09/2021 2:42 PM Age: 55 years old Clinical indication: Abnormal findings; Abnormal radiologic exam of lung or chest; Additional info: 9-month follow-up TECHNIQUE: Imaging protocol: Diagnostic computed tomography of the chest without contrast. Radiation optimization: All CT scans at this facility use at least one of these dose optimization techniques: automated exposure control; mA and/or kV adjustment per patient size (includes targeted exams where dose is matched to clinical indication); or iterative reconstruction. COMPARISON: CT CHEST WO CON 09/03/2020 6:11 AM FINDINGS: Lungs: Moderate upper lobe predominant paraseptal emphysema. Diffuse cylindrical bronchiectasis. Stable 11 mm polygonal nodule in the medial superior segment of the right lower lobe (image 96 series 3 and image 43 series 602). Diffuse chronic reticular interstitial opacification noted throughout the lung periphery. No acute interstitial or airspace disease. No other concerning pulmonary nodules. Pleural spaces: Unremarkable. No pneumothorax. No pleural effusion. Heart: There is calcification of the aortic valve annulus. There is severe atherosclerotic calcification of the coronary arteries. Heart is of normal size and morphology. No pericardial thickening or effusion. Pulmonary arteries: Normal in course and caliber. Aorta: The aorta demonstrates mild atherosclerotic calcification. No acute pathology in the aorta. Lymph nodes: No concerning mediastinal, hilar, or axillary adenopathy by CT size criteria. Spleen: The spleen demonstrates punctate calcifications, consistent with remote granulomatous organism exposure. Intestine: There is excessive colonic stool content. Bones/joints: No acute skeletal pathology. Moderate multilevel degenerative changes of the spine, as manifested by multilevel anterior osteophytes and multilevel decrease in intervertebral disc space. Soft tissues: No acute body wall soft tissue findings. Other findings: The visualized intra-abdominal structures demonstrate no acute findings. Airways remain patent. IMPRESSION: Essentially stable 11 mm nodule in the superomedial segment of the right lower lobe, highly likely to be abutting directly on the right major fissure and representing a perifissural nodule. Additionally, the morphological characteristics of the nodule also favor a perifissural nodule (polygonal in morphology). This nodule has been stable since 06/02/2020. Recommend follow-up CT Chest in 6-12 months. (References: Isabela and Kushal) REFERENCES: 1. Isabela Pena, et al. Guidelines for Management of Incidental Pulmonary Nodules Detected on CT Images: From the Fleischner Society 2017. Radiology. 2017;284(1):228-243. 2. Kushal J, et al. Updated Fleischner Society Guidelines for Managing Incidental Pulmonary Nodules: Common Questions and Challenging Scenarios. Radiographics. 2018;38(5):2442-9771.
== END ==
PROVIDERS: PCP Emergency Medicine; Visit Provider Internal Medicine Pulmonary Disease
DX: R91.8 Other nonspecific abnormal finding of lung field (principal)
CPT/HCPCS: 71250

== ENCOUNTER → 2021-07-06 12:46 | Outpatient (POV) | payer MEDICAID, SELFPAY ==
[2021-07-06 12:55] VITALS: BP 161/87; PULSE 88; RESP 18; TEMP 36.3; O2SAT 97; BMI 29.0
--- NOTE | 2021-07-06 13:10 | HMH.PMCON ---
Assessment and Plan (1) Degenerative joint disease (DJD) of lumbar spine Status: Acute Qualifiers: Spinal osteoarthritis complication: with radiculopathy Qualified Code(s): M47.26 - Other spondylosis with radiculopathy, lumbar region Category: Medical Code(s): M47.816 - Spondylosis without myelopathy or radiculopathy, lumbar region (2) Lumbar radicular pain Status: Acute Category: Medical Code(s): M54.16 - Radiculopathy, lumbar region - Assessment and plan all Dx Assessment and Plan for all problems:: This patient is very pleasant 55-year-old white male that comes today with a complaint of chronic and acute low back pain with bilateral hip and leg radicular symptoms at times. Patient describes the pain as constant, dull, aching. Patient reports the pain starts in the low back area as well as traveling into the buttocks posteriorly and upper legs. Patient denies pain in his feet. MRI shows degenerative disc disease lumbar spine multilevels. Bilateral neuroforaminal narrowing at L5-S1. I discussed in detail with the patient regarding lumbar epidural steroid injection at the L4-5 level. Patient wishes to proceed. I answered his questions regarding the injection. HPI - Data of Consult Consult date: 07/06/21 Requesting Physician: Ender Giordano CRNA - Consult Narrative Reason for consult: Back pain. Bilateral leg radicular symptoms. History of present illness: Mr. España is a 55 year old male CC: Ender Giordano CRNA [facility] History I have reviewed the patient's past medical history: Yes Medical History: Reports:: Depression, Hyperlipidemia, Hypertension Denies:: Cancer, Diabetes Mellitus Type 1, Diabetes Mellitus Type 2, MRSA *Have you ever received a pneumonia vaccine?: No *Have you received a flu vaccine this season?: Yes Other Medical History: Reports: Anemia, Other Other Surgeries: Yes: No Previous Surgery Amputation: No Fractures: Yes (lt elbow) - *Social History Smoking Status: Current every day smoker Tobacco Type: e-cigarettes # Packs/Day (cigarettes): 0 Alcohol Intake: never Substance Use Type: heroin *Occupational Status:: unemployed Housing: apartment Household Members: none *Travel in the last 8 weeks: None - Psychiatric History Pschychiatric History:: Reports:: Depression Family Hx:: Cancer, Diabetes Review of Systems - Review of Systems Review of systems:: pertinent systems reviewed and negative unless documented below Meds Home Medications Medication Instructions Recorded Confirmed Type buprenorphine 8 mg-naloxone 2 mg 2 each SUBLINGUAL DAILY each 08/17/20 07/06/21 History sublingual film albuterol sulfate 90 mcg/actuation 1 inh INHALATION QID PRN #8.5 g 05/13/21 07/06/21 Rx aerosol inhaler Atorvastatin Calcium [Lipitor 10mg 10 mg PO HS 07/06/21 07/06/21 History Tab] Carbamide Peroxide [Murine Ear Wax 5 drp OTIC Q12H 07/06/21 07/06/21 History Removal System] Neomyc/Colist/Hydrocort/Thonzn 2 drp OTIC Q4H 07/06/21 07/06/21 History [Cortisporin-Tc Ear Suspension] Pantoprazole Sodium See Rx Instructions .ROUTE .COMPLEX 07/06/21 07/06/21 History Quetiapine Fumarate See Rx Instructions .ROUTE .COMPLEX 07/06/21 07/06/21 History Sildenafil Citrate See Rx Instructions .ROUTE .COMPLEX 07/06/21 07/06/21 History Tiotropium Br/Olodaterol HCl 2 puff INHALATION DAILY 07/06/21 07/06/21 History [Stiolto Respimat] Trazodone HCl 150 mg PO HS 07/06/21 07/06/21 History diazePAM [Valium 5mg tablets] 5 mg PO TID 07/06/21 07/06/21 History lisinopriL [Lisinopril] See Rx Instructions .ROUTE .COMPLEX 07/06/21 07/06/21 History Allergies Allergy/AdvReac Type Severity Reaction Status Date / Time No Known Allergies Allergy Verified 06/16/21 10:04 Objective Vital signs: Temp Pulse Resp BP Pulse Ox 97.4 F L 88 18 161/87 H 97 07/06/21 12:55 07/06/21 12:55 07/06/21 12:55 07/06/21 12:55 07/06/21 12:55 Opioid Risk Tool - Opioid Risk
== END ==
PROVIDERS: Visit Provider Nurse Anesthetist, Certified Registered
DX: M47.26 Other spondylosis with radiculopathy, lumbar region (principal); M54.16 Radiculopathy, lumbar region
CPT/HCPCS: 99202; G0463

== ENCOUNTER 2021-07-09 10:44 | Day surgery (SDC) | payer MEDICAID, SELFPAY ==
[2021-07-09 10:56] VITALS: BP 157/82; PULSE 89; RESP 18; TEMP 36.9; O2SAT 99; BMI 29.0
[2021-07-09 11:13] VITALS: BP 137/70; PULSE 83; RESP 20; O2SAT 97
[2021-07-09 11:14] VITALS: BP 137/70; PULSE 80; RESP 20; O2SAT 97
--- NOTE | 2021-07-09 11:16 | HMH.PMPROC ---
- Procedure Date: 07/09/21 Time: 11:16 Anesthesiologist:: Ender Giordano CRNA Complications:: None Pre-procedure Diagnosis:: Disease lumbar spine multilevels. Bilateral leg radiculopathy. Post-procedure Diagnosis:: Same Indications for Procedure:: Very pleasant 55-year-old white male that has bilateral hip and leg pain associated with lumbar back pain as well. He has degenerative disc lumbar spine multilevels. He presents our clinic today for L4-5 lumbar epidural steroid injection. Procedure Details:: Procedure: Lumbar epidural steroid injection under fluoroscopy Informed consent was obtained and the risks and benefits of the procedure were explained to the patient. The patient was taken to the procedure room and noninvasive monitors placed, including noninvasive blood pressure cuff and pulse oximeter. The back was viewed using C-arm Fluoroscopy and prepped using Betadine as a cleansing solution and the L4-L5 interspace was palpated. Skin and subcutaneous tissues were anesthetized using lidocaine 1.5% and a 25-gauge needle. After this, an 18-gauge Touhy epidural needle was placed into the L4-L5 interspace and advanced using fluoroscopic guidance and loss of resistance to air until the epidural space was encountered. After confirmation of needle placement in the epidural space, with dye, a solution containing lidocaine 1.5%, 4 mL and Depo-Medrol 80 mg were incrementally injected into the lumbar epidural space. The patient tolerated the procedure well with no complications. The patient was observed in the Pain Clinic and then discharged home neurologically intact. Plan and Disposition:: Patient was discharged without incident. He will return return to the clinic for follow-up
[2021-07-09 11:22] VITALS: BP 139/78; PULSE 81; RESP 20; O2SAT 95
== END 2021-07-09 11:23 | disposition home or self-care (01) ==
LOC: SC.PAINP 10:45
PROVIDERS: PCP Emergency Medicine; Visit Provider Nurse Anesthetist, Certified Registered
DX: M51.16 Intervertebral disc disorders with radiculopathy, lumbar region (principal); E78.5 Hyperlipidemia, unspecified; I10 Essential (primary) hypertension; D64.9 Anemia, unspecified; F32.A Depression, unspecified; Z83.3 Family history of diabetes mellitus; Z80.9 Family history of malignant neoplasm, unspecified
CPT/HCPCS: 62323; J1040

== ENCOUNTER → 2021-08-16 10:14 | Outpatient (POV) | payer MEDICAID, SELFPAY ==
[2021-08-16 10:21] VITALS: BP 152/82; PULSE 78; RESP 18; TEMP 36.6; O2SAT 97; BMI 29.0
--- NOTE | 2021-08-16 13:01 | HMH.PAINSOAP ---
[facility] Pain Management SOAP Note Subjective:: Patient is a pleasant 55-year-old male who presents today for follow-up after a lumbar epidural steroid injection on July 09, 2021. Patient is currently being treated for degenerative disc disease of the lumbar spine with lumbar radiculopathy symptoms, facet arthropathy, lumbar spondylosis. After the procedure, patient had significant relief of 70 to 80% that lasted for 4 to 5 days. Denies any issues after the injection. Patient was able to increase his activity after the injection. Today, patient says that he is currently having pain around his low back that radiates to bilateral lower extremities. This is worse with any lumbar flexion, extension, and rotation. For pain, he is currently on Suboxone therapy. He sees [facility] every week. He states that the medication helps him significantly. 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 Rates pain today as 8/10. John [id number], MEQ 0. Review of Systems: General: No recent weight changes, no fever, no sleep disturbances Respiratory: No cough, no shortness of air, no recurring pulmonary infections Cardiovascular/peripheral vascular: No chest pain, no palpitations, no edema, no shortness of breath Gastrointestinal: No new onset incontinence, normal bowel movements reported Genitourinary: No new onset incontinence Musculoskeletal: Low back pain Psychiatric: [Normal mood/affect] Neurological: [Denies weakness in extremities], [denies balance issues] Objective:: Physical Exam: General: Alert and oriented x3, no acute distress, pleasant and cooperative Lungs: Respirations even and unlabored, symmetrical chest expansion Eyes: PERRL Musculoskeletal: Flexion and extension of lumbar [spine] somewhat guarded secondary to pain, [antalgic gait noted]; positive Tay Neurological: Speech clear, no gross sensory deficit Assessment:: Degenerative disc disease of lumbar spine with lumbar radiculopathy symptoms Lumbar spondylosis Lumbar facet arthropathy Plan:: IMAGING: Ordering Physician: Uriel Damon MD Date of Service: 06/07/21 Procedure(s): MR lumbar spine wo con Accession Number(s): [id number] cc: Uriel Damon MD; Kiran Nichols MD~ FINAL REPORT CLINICAL HISTORY: back pain. rt sided leg pain, numbness, and tingling [id number]. no injury or trauma. FINDINGS: Multiplanar MR imaging of the lumbar spine was performed without contrast. On the sagittal T2-weighted images, multilevel disc degeneration and endplate changes are seen seen. There is mild leftward curvature. The vertebral alignment is otherwise normal. There is no evidence of fracture. No bony mass is identified. The conus is seen at approximately the L1 level and has an unremarkable appearance. T12-L1: Annular disc bulge with moderate bilateral neuroforaminal narrowing. L1-2: Annular disc bulge with facet arthropathy and osteophytes. There is moderate bilateral neuroforaminal narrowing. L2-3: Annular disc bulge with facet arthropathy and osteophytes. There is moderate bilateral neuroforaminal narrowing. L3-4: Annular disc bulge with facet arthropathy and osteophytes. There is a right posterolateral disc protrusion with moderate right and mild left neuroforaminal narrowing. L4-5: Annular disc bulge with facet arthropathy and osteophytes. There is moderate right and severe left neuroforaminal narrowing. There is a small right paracentral disc protrusion. L5-S1: Annular disc bulge with facet arthropathy. There is severe bilateral neuroforaminal narrowing. Partial lumbarization is noted of S1. IMPRESSION: Multilevel degenerative disc disease with severe bilateral neuroforaminal narrowing at L5-S1 and partial lumbarization of S1. Reviewed, Interpreted and Dictated by Kiran Nichols III, MD Transcribed by Zhane Dhillon Authenticated by Kiran Nichols III, MD on 06/07/2021 12:55:31 PM [facility]
== END ==
PROVIDERS: Visit Provider Student in an Organized Health Care Education/Training Program
DX: M51.16 Intervertebral disc disorders with radiculopathy, lumbar region (principal); M47.896 Other spondylosis, lumbar region; M54.06 Panniculitis affecting regions of neck and back, lumbar region
CPT/HCPCS: 99212; G0463

== ENCOUNTER 2021-08-20 11:11 | Day surgery (SDC) | payer MEDICAID, SELFPAY ==
[2021-08-20 11:30] VITALS: BP 149/84; PULSE 74; RESP 20; TEMP 36.6; O2SAT 99; BMI 29.0
[2021-08-20 11:34] VITALS: BP 143/83; PULSE 72; RESP 18; O2SAT 95
[2021-08-20 11:35] VITALS: BP 143/83; PULSE 72; RESP 18; O2SAT 96
[2021-08-20 11:40] VITALS: BP 119/86; PULSE 71; RESP 18; O2SAT 100
--- NOTE | 2021-08-20 11:49 | P.PCN_ITS ---
- Procedure Date: 08/20/21 Time: 11:49 Anesthesiologist:: Cristi Strong MD Complications:: None Pre-procedure Diagnosis:: Degenerative disc disease of lumbar spine with lumbar spondylosis and lumbar facet arthropathy Post-procedure Diagnosis:: Same Indications for Procedure:: Patient is a pleasant 55-year-old white male who we are treating for low back pain with lumbar spondylosis and lumbar facet arthropathy. He has increasing pain over the facet joints of L4-5 and L5-S1. There is increased pain with extension and twisting. We will plan on bilateral lumbar medial branch block/facet joint injections of L4-5 and L5-S1 today. Procedure Details:: Lumbar medial branch block Informed consent was obtained and the risks and benefits of the procedure was ex plained to the patient. The back was prepped using ChloraPrep. The skin and subcutaneous tissues were anesthetized using lidocaine. I placed 22-gauge spinal needles into the facet joint/medial branches of L4-L5 and L5-S1 bilaterally. Needle placement was confirmed with dye. After this we injected 3 mL bupivacaine 0.25% and Depo-Medrol 20 mg into each facet joint/medial branch of L4-L5 and L5-S1 bilaterally. We used a total of 80 mg Depo-Medrol for both levels bilaterally. The patient tolerated the procedure well with no complications. Plan and Disposition:: We will follow-up with him in 2 weeks. Will reevaluate symptoms at that time. Successful we will plan on RF ablation to the facet joint/medial branch blocks of L4-5 and L5-S1 bilaterally.
== END 2021-08-20 11:40 | disposition home or self-care (01) ==
LOC: SC.PAINP 11:12
PROVIDERS: PCP Emergency Medicine; Visit Provider Anesthesiology
DX: M51.36 Other intervertebral disc degeneration, lumbar region (principal); M47.816 Spondylosis without myelopathy or radiculopathy, lumbar region; M54.06 Panniculitis affecting regions of neck and back, lumbar region; E78.5 Hyperlipidemia, unspecified; I10 Essential (primary) hypertension; F32.A Depression, unspecified; D64.9 Anemia, unspecified; Z72.0 Tobacco use; F11.11 Opioid abuse, in remission; J44.9 Chronic obstructive pulmonary disease, unspecified; M19.90 Unspecified osteoarthritis, unspecified site; Z86.14 Personal history of Methicillin resistant Staphylococcus aureus infection
CPT/HCPCS: 64493; 64494; J1030; Q9966

== ENCOUNTER → 2021-08-31 12:49 | Outpatient (POV) | payer MEDICAID, SELFPAY ==
[2021-08-31 13:10] VITALS: BP 156/84; PULSE 87; RESP 18; TEMP 36.4; O2SAT 96; BMI 29.0
--- NOTE | 2021-08-31 13:44 | HMH.PAINSOAP ---
[facility] Pain Management SOAP Note Subjective:: Patient is a pleasant 55-year-old male who presents today for follow-up after a diagnostic medial branch block at L4-L5 and L5-S1 on August 20, 2021. Patient is current being treated for degenerative disc disease of lumbar spine, lumbar facet arthropathy, lumbar spondylosis, lumbar radiculopathy. After the injection, patient had relief for a few hours but he was back to his baseline pain after a day. He had more relief after his lumbar epidural steroid injection that lasted for about a week. He cannot tolerate any prolonged activities such as standing and walking. Pain is worse with any lumbar flexion, extension, and rotation. For pain, he is currently on Suboxone therapy. [facility] He states that this medication is helping him significantly. He says that he has been compliant with his treatments. Rates pain today as 9/10. John [id number], MEQ 0. Review of Systems: General: No recent weight changes, no fever, no sleep disturbances Respiratory: No cough, no shortness of air, no recurring pulmonary infections Cardiovascular/peripheral vascular: No chest pain, no palpitations, no edema, no shortness of breath Gastrointestinal: No new onset incontinence, normal bowel movements reported Genitourinary: No new onset incontinence Musculoskeletal: Low back pain Psychiatric: [Normal mood/affect] Neurological: [Denies weakness in extremities], [denies balance issues] Objective:: Physical Exam: General: Alert and oriented x3, no acute distress, pleasant and cooperative Lungs: Respirations even and unlabored, symmetrical chest expansion Eyes: PERRL Musculoskeletal: Flexion and extension of lumbar [spine] somewhat guarded secondary to pain, [antalgic gait noted] Neurological: Speech clear, no gross sensory deficit Assessment:: Degenerative disease of lumbar spine with lumbar radiculopathy symptoms, facet arthropathy, lumbar spondylosis Plan:: Patient had relief for less than a day after the diagnostic medial branch block at L4-L5 and L5-S1. Patient had more relief after the lumbar epidural steroid injection that lasted for about 4 to 5 days. He rates his pain today as 9 out of 10. He continues to go to a chiropractor about 3 times a week for adjustments. He does get relief from these adjustments. He has been managing his pain with Suboxone therapy and has been compliant with his treatment. We will do a repeat lumbar epidural steroid injection. Risks and benefits of the procedure have been explained to the patient. Patient would like to proceed with the procedure. If the patient gets significant but temporary relief after the lumbar epidural steroid injection, I discussed with the patient that he might be a good candidate for spinal cord stimulator therapy. He is agreeable to this. I have also discussed with him that he we will need a psychiatric evaluation before any implants. Patient may need to get a letter from the social media sr strategy manager that he is seeing now at the Suboxone clinic. He can then bring it to his psych eval appt. Patient has been instructed to contact the clinic with any concerns before the next appointment. Dr. Strong has reviewed this note and agrees with this plan of care. This note was dictated using voice recognition software and make contain errors or omissions. [facility] History Medical History: Reports:: Depression, Hyperlipidemia, Hypertension Denies:: Cancer, Diabetes Mellitus Type 1, Diabetes Mellitus Type 2, MRSA *Have you ever received a pneumonia vaccine?: No *Have you received a flu vaccine this season?: Yes Other Medical History: Reports: Anemia, Arthritis, Other Other Surgeries: Yes: No Previous Surgery Amputation: No Fractures: Yes (lt elbow) - *Social History Smoking Status: Current every day smoker Tobacco Type: e-cigarettes # Packs/Day (cigarettes): 1 Alcohol Intake: never Substance Use Type: former substance user, heroin *Occupational Status
== END ==
PROVIDERS: Visit Provider Student in an Organized Health Care Education/Training Program
DX: M51.16 Intervertebral disc disorders with radiculopathy, lumbar region (principal); M47.26 Other spondylosis with radiculopathy, lumbar region
CPT/HCPCS: 99212; G0463

== ENCOUNTER → 2021-09-06 10:33 | Outpatient (POV) | payer MEDICAID, SELFPAY ==
[2021-09-06 11:56] VITALS: BP 125/77; PULSE 99; RESP 17; TEMP 36.6; O2SAT 94; BMI 29.0
--- NOTE | 2021-09-06 12:40 | HMH.PAINSOAP ---
[facility] Pain Management SOAP Note Subjective:: Patient is a pleasant 55-year-old male who presents today for follow-up. Patient is current being treated for degenerative disc disease of lumbar spine, lumbar facet arthropathy, lumbar spondylosis, lumbar radiculopathy. I saw this patient last for follow-up after a diagnostic medial branch block at L4-L5 and L5-S1 bilaterally on August 20, 2021. He states that this injection did provided him with less than 24 hours of relief. Previously, he had a lumbar epidural steroid injection that provided almost a week of relief. When I saw him last , I had scheduled the patient for a lumbar epidural steroid injection at L4-L5 and he was scheduled to get this injection done this coming Friday, September 10, 2021. Today, patient states that he has been having worsening pain since and he has been unable to sit, lay down, standing, and walk. He denies any recent falls or traumas. He denies any loss of bowel or bladder functions. He has been unable to sleep for the last 3 nights because of the pain. He for pain, he has been taking [id number] medication. He is also on Suboxone therapy. He rates his pain today as 10 out of 10. Review of Systems: General: No recent weight changes, no fever, no sleep disturbances Respiratory: No cough, no shortness of air, no recurring pulmonary infections Cardiovascular/peripheral vascular: No chest pain, no palpitations, no edema, no shortness of breath Gastrointestinal: No new onset incontinence, normal bowel movements reported Genitourinary: No new onset incontinence Musculoskeletal: Low back pain, bilateral hip pain Psychiatric: [Normal mood/affect] Neurological: [Denies weakness in extremities], [denies balance issues] Objective:: Physical Exam: General: Alert and oriented x3, no acute distress, pleasant and cooperative Lungs: Respirations even and unlabored, symmetrical chest expansion Eyes: PERRL Musculoskeletal: Flexion and extension of lumbar [spine] somewhat guarded secondary to pain, [antalgic gait noted]; bilateral SI are positive for BIJAL, Berta's, Elizabeth's, Gaenslen's, compression, and distraction. Neurological: Speech clear, no gross sensory deficit Assessment:: Degenerative disc disease of lumbar spine with lumbar radiculopathy symptoms, sacroiliitis Plan:: Patient presents today with worsening low back pain that radiates to bilateral lower extremities. His pain has been very severe in the last 3 to 4 days. He has not been able to sleep for the past 3 nights. He takes Suboxone on [id number]-[id number] medications for pain. I will start the patient on prednisone 20 mg twice a day for 5 days, diclofenac 75 mg twice a day for 14 days, tizanidine 4 mg 3 times a day for 14 days. We will cancel the patient's lumbar epidural steroid injection. Patient has extreme point of tenderness in bilateral SI joints. Patient has positive bilateral SI exam. We will schedule the patient for a bilateral SI injection in 3 weeks. Patient has been instructed to contact the clinic with any concerns before the next appointment. Dr. Strong has reviewed this note and agrees with this plan of care. This note was dictated using voice recognition software and make contain errors or omissions. [facility] History Medical History: Reports:: Depression, Hyperlipidemia, Hypertension Denies:: Cancer, Diabetes Mellitus Type 1, Diabetes Mellitus Type 2, MRSA *Have you ever received a pneumonia vaccine?: No *Have you received a flu vaccine this season?: Yes Other Medical History: Reports: Anemia, Arthritis, Other Other Surgeries: Yes: No Previous Surgery Amputation: No Fractures: Yes (lt elbow) - *Social History Smoking Status: Current every day smoker Tobacco Type: e-cigarettes # Packs/Day (cigarettes): 1 Alcohol Intake: never Substance Use Type: former substance user, heroin *Occupational Status:: other Housing: apartment Household Members: none *Travel in the last 8 we
== END ==
PROVIDERS: Visit Provider Student in an Organized Health Care Education/Training Program
DX: M51.16 Intervertebral disc disorders with radiculopathy, lumbar region (principal); M46.1 Sacroiliitis, not elsewhere classified; M47.26 Other spondylosis with radiculopathy, lumbar region
CPT/HCPCS: 99212; G0463

== ENCOUNTER → 2021-09-13 09:58 | Outpatient (POV) | payer MEDICAID, SELFPAY ==
[2021-09-13 10:12] VITALS: BP 151/82; PULSE 90; RESP 18; TEMP 36.8; O2SAT 97; BMI 29.0
--- NOTE | 2021-09-13 11:58 | HMH.PAINSOAP ---
[facility] Pain Management SOAP Note Subjective:: Patient is a pleasant 55-year-old male presents today for follow-up. Patient is current being treated for degenerative disc disease of lumbar spine, lumbar facet arthropathy, lumbar spondylosis, lumbar radiculopathy. In the past, we have done diagnostic medial branch block at L4-L5 and L5-S1 bilaterally the provided minimal relief. Then, we did a lumbar epidural steroid injection that provided a week of relief. I saw him last week and was complaining of significant low back pain and has been unable to get up from a sitting position. Pain is worse with any prolonged activity such as standing and walking. He has been sleeping on the couch/recliner because he cannot lay flat. Since he was having acute pain, I started him on prednisone for 5 days, diclofenac, and tizanidine. Even with these medications, the patient only had minimal relief. He says that the tizanidine is helping him sleep. He rates his pain today as 10 out of 10. He is also on Suboxone therapy. John [id number] with an active morphine equivalent of 0. Review of Systems: General: No recent weight changes, no fever, no sleep disturbances Respiratory: No cough, no shortness of air, no recurring pulmonary infections Cardiovascular/peripheral vascular: No chest pain, no palpitations, no edema, no shortness of breath Gastrointestinal: No new onset incontinence, normal bowel movements reported Genitourinary: No new onset incontinence Musculoskeletal: Low back pain Psychiatric: [Normal mood/affect] Neurological: [Denies weakness in extremities], [denies balance issues] Objective:: Physical Exam: General: Alert and oriented x3, no acute distress, pleasant and cooperative Lungs: Respirations even and unlabored, symmetrical chest expansion Eyes: PERRL Musculoskeletal: Flexion and extension of lumbar [spine] somewhat guarded secondary to pain, [antalgic gait noted] Neurological: Speech clear, no gross sensory deficit Assessment:: Degenerative disc disease of lumbar spine with lumbar radiculopathy symptoms, lumbar facet arthropathy, lumbar spondylosis Plan:: Imaging: CLINICAL HISTORY: back pain. rt sided leg pain, numbness, and tingling [id number]. no injury or trauma. FINDINGS: Multiplanar MR imaging of the lumbar spine was performed without contrast. On the sagittal T2-weighted images, multilevel disc degeneration and endplate changes are seen seen. There is mild leftward curvature. The vertebral alignment is otherwise normal. There is no evidence of fracture. No bony mass is identified. The conus is seen at approximately the L1 level and has an unremarkable appearance. T12-L1: Annular disc bulge with moderate bilateral neuroforaminal narrowing. L1-2: Annular disc bulge with facet arthropathy and osteophytes. There is moderate bilateral neuroforaminal narrowing. L2-3: Annular disc bulge with facet arthropathy and osteophytes. There is moderate bilateral neuroforaminal narrowing. L3-4: Annular disc bulge with facet arthropathy and osteophytes. There is a right posterolateral disc protrusion with moderate right and mild left neuroforaminal narrowing. L4-5: Annular disc bulge with facet arthropathy and osteophytes. There is moderate right and severe left neuroforaminal narrowing. There is a small right paracentral disc protrusion. L5-S1: Annular disc bulge with facet arthropathy. There is severe bilateral neuroforaminal narrowing. Partial lumbarization is noted of S1. IMPRESSION: Multilevel degenerative disc disease with severe bilateral neuroforaminal narrowing at L5-S1 and partial lumbarization of S1. Reviewed, Interpreted and Dictated by Kiran Nichols III, MD Transcribed by Zhane Dhillon Authenticated by Kiran Nichols III, MD on 06/07/2021 12:55:31 PM [facility] Plan: Patient presents today with worsening low back pain that radiates to bilateral lower extremities. I have tried him on prednisone for
== END ==
PROVIDERS: Visit Provider Student in an Organized Health Care Education/Training Program
DX: M51.16 Intervertebral disc disorders with radiculopathy, lumbar region (principal); M47.26 Other spondylosis with radiculopathy, lumbar region
CPT/HCPCS: 99212; G0463

== ENCOUNTER → 2021-09-17 11:32 | Outpatient (POV) | payer MEDICAID, SELFPAY ==
--- NOTE | 2021-09-17 12:19 | P.CONS_ITS ---
[facility] Pain Management SOAP Note Subjective:: This patient is a 55-year-old white male who we have been treating for low back pain and right leg pain. He has had lumbar pleural steroid injections and medial branch blocks in the past. The medial branch blocks only provided minimal relief. He got a weeks relief from the lumbar pleural steroid in jection. We are awaiting insurance approval for repeat lumbar epidural steroid injection. He has been on diclofenac and tizanidine which do help some. However, he still has excruciating pain in his back and down his right leg. He is also currently on Suboxone therapy given to him by Dr. Keane. I have talked to him about long-term options including intrathecal therapy. I do believe he would be a good candidate for a bupivacaine intrathecal pain pump which is nonnarcotic. He can continue with his Suboxone therapy with a bupivacaine pain pump. Objective:: Alert and oriented x3 no acute distress. Patient seen sitting in a wheelchair. He does need assistance while walking. He uses a walker at home. Motor strength of the lower extremities is 5/5. There is no gross sensory deficit. Assessment:: Degenerative disease of lumbar spine with lumbar radiculopathy symptoms Plan:: Because the patient is on Suboxone therapy we cannot write him any controlled substances. He will continue with his Suboxone therapy. We will renew his diclofenac and tizanidine. We are awaiting approval for a lumbar pleural s teroid injection. He did get 1 weeks relief from his previous lumbar epidural steroid injection. I do believe he would be a good candidate for intrathecal therapy. We will order psychological evaluation and seek approval for intrathecal pump trial with bupivacaine. [facility] History Medical History: Reports:: Depression, Hyperlipidemia, Hypertension Denies:: Cancer, Diabetes Mellitus Type 1, Diabetes Mellitus Type 2, MRSA *Have you ever received a pneumonia vaccine?: No *Have you received a flu vaccine this season?: Yes Other Medical History: Reports: Anemia, Arthritis, Other Other Surgeries: Yes: No Previous Surgery Amputation: No Fractures: Yes (lt elbow) - *Social History Smoking Status: Current every day smoker Tobacco Type: e-cigarettes # Packs/Day (cigarettes): 1 Alcohol Intake: never Substance Use Type: former substance user, heroin *Occupational Status:: other Housing: apartment Household Members: none *Travel in the last 8 weeks: Inside the [facility] - Psychiatric History Pschychiatric History:: Reports:: Depression Family Hx:: No significant family history
[2021-09-17 12:41] VITALS: BP 148/88; PULSE 80; RESP 20; TEMP 36.7; O2SAT 95; BMI 29.0
== END ==
PROVIDERS: PCP Emergency Medicine; Visit Provider Anesthesiology
DX: M51.16 Intervertebral disc disorders with radiculopathy, lumbar region (principal)
CPT/HCPCS: 99212; G0463

== ENCOUNTER → 2021-10-07 14:22 | Outpatient (POV) | payer MEDICAID, SELFPAY ==
[2021-10-07 14:47] VITALS: BP 126/78; PULSE 94; RESP 20; TEMP 37; O2SAT 95; BMI 29.0
--- NOTE | 2021-10-07 15:21 | HMH.PAINSOAP ---
[facility] Pain Management SOAP Note Subjective:: Patient is pleasant 55-year-old white male who is here for follow-up today. We are currently treating him for degenerative disc disease of lumbar spine with lumbar radiculopathy symptoms. Today he rates his pain a 6 out of 10. He describes the pain as a constant sharp pain that is worse with activity. He states it is worse in the morning. Medications do make it better. He currently manages his pain with [id number]-caybnhv ibuprofen and muscle relaxers with minimal relief. He states the only thing that really helps is his nerve medication because it makes him go to sleep. Patient has had 2 lumbar epidural steroid injections, in the past. He states the medial branch block only gave minimal relief however the lumbar epidurals did give relief around 60% lasting a week or so. He has also tried topical application of Biofreeze and lidocaine patches that have not helped. He denies any new trauma or injury. Patient denies any change in the location or type of pain. Patient has seen a chiropractor but stated that it did not help. He has also tried at home stretching and exercise for more than 6 weeks with no relief. Patient would like to be scheduled for a repeat injection at this time. He is currently on Suboxone therapy given to him by Dr. Keane. His John is [id number] with a morphine equivalent of 0 it has been reviewed and is appropriate. Review of Systems: General: No recent weight changes, no fever, no sleep disturbances Respiratory: No cough, no shortness of air, no recurring pulmonary infections Cardiovascular/peripheral vascular: No chest pain, no palpitations, no edema, no shortness of breath Gastrointestinal: No new onset incontinence, normal bowel movements reported Genitourinary: No new onset incontinence Musculoskeletal: Back pain Psychiatric: [Normal mood/affect] Neurological: [Denies weakness in extremities], [denies balance issues] Objective:: Physical Exam: General: Alert and oriented x3, no acute distress, pleasant and cooperative Lungs: Respirations even and unlabored, symmetrical chest expansion Eyes: PERRL Musculoskeletal: Flexion and extension of lumbar [spine] somewhat guarded secondary to pain, [antalgic gait noted] Neurological: Speech clear, no gross sensory deficit Assessment:: Generative disc disease of lumbar spine with lumbar radiculopathy symptoms Plan:: Patient did have significant relief with his prior lumbar epidural steroid injections. He stated he had about 60% improvement in his pain. He was denied his last injection for his lumbar epidural. We will try to schedule him for a repeat lumbar epidural steroid injection at this time. Risk and benefits have been discussed with the patient. He would like to proceed forward. We will schedule him for a LESI L4-L5. Dr. JESSICA Olivera has talked to the patient regarding long-term options including intrathecal therapy. He stated he would be a good candidate for bupivacaine as a nonnarcotic in order to continue his Suboxone therapy. Patient has been instructed to contact the clinic with any concerns before the next appointment. Dr. Strong has reviewed this note and agrees with this plan of care. This note was dictated using voice recognition software and make contain errors or omissions. [facility] History I have reviewed the patient's past medical history: Yes Medical History: Reports:: Depression, Hyperlipidemia, Hypertension Denies:: Cancer, Diabetes Mellitus Type 1, Diabetes Mellitus Type 2, MRSA *Have you ever received a pneumonia vaccine?: No *Have you received a flu vaccine this season?: Yes Other Medical History: Reports: Anemia, Arthritis, Other Other Surgeries: Yes: No Previous Surgery Amputation: No Fractures: Yes (lt elbow) - *Social History Smoking Status: Current every day smoker Tobacco Type: e-cigarettes # Packs/Day (cigarettes): 1 Alcohol Intake: never Substance Use Type: former substance user, heroin *Occupati
== END ==
PROVIDERS: Visit Provider Student in an Organized Health Care Education/Training Program
DX: M51.16 Intervertebral disc disorders with radiculopathy, lumbar region (principal); M19.90 Unspecified osteoarthritis, unspecified site; Z72.0 Tobacco use
CPT/HCPCS: 99212; G0463

== ENCOUNTER 2021-10-13 23:22 | Emergency (ER) | payer MEDICAID, SELFPAY ==
--- NOTE | 2021-10-13 23:19 | ECG_ITS ---
APPROVED REPORT Exam: Resting ECG HR:103 bpm ECG Measurements Heart Rate 103 AXES HI 180 P 42 QRSd 162 QRS -4 QT 382 T 108 QTc 442 Conclusion SINUS TACHYCARDIA LEFT BUNDLE BRANCH BLOCK [120+ ms QRS DURATION, 80+ ms Q/S IN V1/V2, 85+ ms R IN I/aVL/V5/V6] ABNORMAL ECG UNCONFIRMED REPORT Electronically signed by : John Dewitt MD 10/14/2021 10:15:27
[2021-10-13 23:23] VITALS: BP 134/81; PULSE 105; RESP 18; TEMP 37.5; O2SAT 95; BMI 29.0
--- NOTE | 2021-10-13 23:45 | XR_ITS ---
PROCEDURE INFORMATION: Exam: XR Chest Exam date and time: 10/13/2021 11:47 PM Age: 55 years old Clinical indication: Pain; On breathing; Additional info: lung pain TECHNIQUE: Imaging protocol: Radiologic exam of the chest. Views: 2 views. COMPARISON: CT CHEST WO CON 06/09/2021 2:42 PM FINDINGS: Lungs: Opacities are noted at the lung bases, left greater than right. Pleural spaces: Unremarkable. No pleural effusion. No pneumothorax. Heart/Mediastinum: Unremarkable. No cardiomegaly. Bones/joints: Unremarkable. IMPRESSION: Bibasilar linear opacities may reflect atelectasis or developing pneumonitis. Aspiration is not excluded.
[2021-10-13 23:51] LABS: Coronavirus 19, PCR Not Detected (NotDetected); Influenza A, PCR Not Detected (NotDetected); Influenza B, PCR Not Detected (NotDetected)
--- NOTE | 2021-10-13 23:54 | PC.NURSE ---
Pt gone to RAD for XRAY
[2021-10-13 23:55] LABS: Basophils # 0.1 K/mm3 (0-0.2); Basophils % 0.6 % (0.1-2.0); Eosinophils # 0.2 K/mm3 (0.0-0.4); Eosinophils % 1.7 % (0.1-12.0); Hematocrit 37.8 % (42.0-52.0); Hemoglobin 12.9 g/dL (14.1-18.0); Lymphocytes # 1.9 K/mm3 (0.7-4.5); Lymphocytes % 16.9 % (10-50); Mean Corpuscular Hemoglobin 30.6 pg (27.0-31.2); Mean Platelet Volume 6.9 fl (7.4-10.4); Monocytes # 0.4 K/mm3 (0.1-1.0); Monocytes % 3.9 % (1.7-9.3); Neutrophils # 8.8 K/mm3 (1.8-7.8); Neutrophils % 76.9 % (37.0-80.0); Platelet Count 270 K/mm3 (142-424); Red Cell Distribution Width 13.4 % (11.5-17.5); White Blood Count 11.4 K/mm3 (4.8-10.8)
--- NOTE | 2021-10-13 23:57 | PC.NURSE ---
Pt back from RAD
[2021-10-13 23:59] LABS: Anion Gap 10.9 mEq/L (5-15); Blood Urea Nitrogen 13 mg/dl (9-20); Calcium 9.3 mg/dl (8.4-10.2); Carbon Dioxide 28 mmol/L (22.0-30.0); Chloride 101 mmol/L (98-107); Creatinine Clearance Estimated 118 mL/min (50-200); Estimated Glomerular Filt Rate 78 ml/min (>60); GFR (African American) 94 ML/MIN (>60); Glucose 161 mg/dl (74-100); Magnesium 1.9 mg/dl (1.6-2.3); Potassium 3.9 mmoL/L (3.5-5.1); Sodium 136 mmol/L (136-145)
[2021-10-14] VITALS (7 sets, daily range): BP systolic 107–165; BP diastolic 70–87; PULSE 82–99; RESP 18; TEMP 37.2; O2SAT 93–94
[2021-10-14 00:04] LABS: C-Reactive Protein 35.3 mg/L (0-4)
[2021-10-14 00:18] LABS: Procalcitonin 0.085 ng/mL (0.0-2.0); Troponin I < 0.01 ng/ml (0.00-0.034)
[2021-10-14 00:41] LABS: Erythrocyte Sedimentation Rate 53 mm/hr (0-20)
--- NOTE | 2021-10-14 01:35 | CT_ITS ---
PROCEDURE INFORMATION: Exam: CTA Chest With Contrast Exam date and time: 10/14/2021 1:49 AM Age: 55 years old Clinical indication: Shortness of breath; Additional info: SOA TECHNIQUE: Imaging protocol: Computed tomographic angiography of the chest with contrast. 3D rendering (Not supervised by radiologist): MIP and/or 3D reconstructed images were created by the technologist. Radiation optimization: All CT scans at this facility use at least one of these dose optimization techniques: automated exposure control; mA and/or kV adjustment per patient size (includes targeted exams where dose is matched to clinical indication); or iterative reconstruction. Contrast material: ISOVUE; Contrast volume: 70 ml; Contrast route: INTRAVENOUS (IV); COMPARISON: CT ANGIO CHEST 06/02/2020 3:20 PM FINDINGS: Pulmonary arteries: Normal. No pulmonary emboli. Aorta: Normal caliber thoracic aorta. Lungs: Stable 9 x 6 mm nodule in the medial aspect of the superior segment right lower lobe (image 43). Bilateral basilar reticular and linear opacities are noted with left greater than right peripheral airspace opacity. Bilateral basilar bronchial wall thickening. Pleural spaces: Unremarkable. No pneumothorax. No pleural effusion. Heart: Normal heart size. Moderate coronary artery calcification. Mild cardiomegaly. Lymph nodes: Hilar and mediastinal lymph nodes are calcified. Adrenal glands: Normal adrenals. Bones/joints: Thoracic degenerative disc disease is noted with canal stenosis at T10-11. Soft tissues: Unremarkable. IMPRESSION: 1. No evidence of acute pulmonary embolism. 2. Bilateral posterior basilar bronchial wall thickening with atelectasis and mild airspace disease. Findings may reflect aspiration. 3. Thoracic spinal canal stenosis at T10-11. Correlate with any symptoms of myelopathy. 4. Stable right lower lobe pulmonary nodule. There are existing follow-up guidelines in this patient's record.
--- NOTE | 2021-10-14 01:45 | HMH.EDSOB ---
ED Disposition Clinical Impression: Left bundle branch block (LBBB) Chest pain Qualifiers: Chest pain type: precordial pain Qualified Code(s): R07.2 - Precordial pain Disposition: Home, Self-Care Condition on Discharge: Good Instructions: DI for Shortness of Breath Additional Instructions: see pcp for follow up and card Prescriptions: levoFLOXacin [Levaquin 500mg tab] 500 mg PO DAILY #7 tab Referrals: Uriel Damon MD [Primary Care Provider] - - Critical Care Critical Care Time: No Attestation: On 10/13/21, the high probability of a clinically significant, sudden or life threatening deterioration of the following system(s) required my full and direct attention, intervention and personal management. The time I documented below is in addition to time spent performing reported procedures but includes the following listed in this critical care notation. Medical Decision Making - Medical Records Medical records reviewed: Yes: I reviewed the patient's medical records. - John Inquiry Pt receiving controlled substance: No Vital Signs: 10/13/21 23:23 10/14/21 00:00 10/14/21 00:32 Temperature 99.5 F Temperature Source Oral Pulse Rate 99 H 91 H Pulse Rate [Apical] 105 H Respiratory Rate 18 Blood Pressure 129/83 107/70 L Blood Pressure [Right Arm] 134/81 Blood Pressure Mean Blood Pressure Mean [Right Arm] 98 Blood Pressure Source [Right Arm] Automatic Cuff Blood Pressure Position [Right Arm] Sitting 02 Sat by Pulse Oximetry 95 93 L 93 L Oxygen Delivery Method Room Air Room Air Room Air 10/14/21 01:01 10/14/21 01:30 10/14/21 02:01 Temperature Temperature Source Pulse Rate 88 86 88 Pulse Rate [Apical] Respiratory Rate Blood Pressure 146/79 H 148/80 H 165/84 H Blood Pressure [Right Arm] Blood Pressure Mean 92 97 111 Blood Pressure Mean [Right Arm] Blood Pressure Source [Right Arm] Blood Pressure Position [Right Arm] 02 Sat by Pulse Oximetry 93 L 94 L 93 L Oxygen Delivery Method 10/14/21 02:31 Temperature Temperature Source Pulse Rate 82 Pulse Rate [Apical] Respiratory Rate Blood Pressure 151/81 H Blood Pressure [Right Arm] Blood Pressure Mean 104 Blood Pressure Mean [Right Arm] Blood Pressure Source [Right Arm] Blood Pressure Position [Right Arm] 02 Sat by Pulse Oximetry 93 L Oxygen Delivery Method - Lab Data Lab results reviewed: Yes: I reviewed the patient's lab results. Lab Results 10/13/21 23:32: Sodium 136, Potassium 3.9, Chloride 101, Carbon Dioxide 28, Anion Gap 10.9, BUN 13, Creatinine 1.00, Estimated Creat Clear 118, Estimated GFR 78, Est GFR ( Amer) 94, Glucose 161 H, Calcium 9.3, Troponin I < 0.01, C-Reactive Protein 35.3 H 10/13/21 23:32: WBC 11.4 H, RBC 4.20 L, Hgb 12.9 L, Hct 37.8 L, MCV 90.0, MCH 30.6, MCHC 34.0, RDW 13.4, Plt Count 270, MPV 6.9 L, Neut % (Auto) 76.9, Lymph % (Auto) 16.9, [place] % (Auto) 3.9, Eos % (Auto) 1.7, Baso % (Auto) 0.6, Neut # (Auto) 8.8 H, Lymph # (Auto) 1.9, [place] # (Auto) 0.4, Eos # (Auto) 0.2, Baso # (Auto) 0.1, ESR 53 H 10/13/21 23:32: Magnesium 1.9, Procalcitonin 0.085 10/13/21 23:32: SARS-CoV-2 (PCR) Not detected, Influenza A Untype (PCR) Not detected, Influenza Type B (PCR) Not detected 10/14/21 00:00: NT-Pro-B Natriuret Pep 458 H 10/14/21 02:43: Troponin I < 0.01 Result diagrams: 10/13/21 23:32 10/13/21 23:32 Orders (Tests/Meds): ED MEDICATIONS Generic Name Dose Route Start Last Admin Trade Name Freq PRN Reason Stop Dose Admin Sodium Chloride 1,000 mls @ 999 mls/hr 10/13/21 23:45 10/14/21 00:00 Sod Chlor 0.9% 1000ml Bag IV 10/14/21 00:45 999 mls/hr .Q1H1M ALMA Administration Discontinued Medications Generic Name Dose Route Start Last Admin Trade Name Freq PRN Reason Stop Dose Admin Iopamidol 70 ml 10/14/21 01:59 10/14/21 02:00 Iopamidol-370 (76%);100ml Bottle IV 10/14/21 02:00 70 ml ONCE ONE Administration Ketorolac Trometham
--- NOTE | 2021-10-14 01:49 | PC.NURSE ---
Pt gone to RAD for CT
--- NOTE | 2021-10-14 01:58 | PC.NURSE ---
Pt back from RAD
[2021-10-14 02:22] LABS: NT Pro Brain Natriuretic Pep. 458 pg/mL (0-125)
--- NOTE | 2021-10-14 02:41 | PC.NURSE ---
2nd trop being drawn now per wei abreu
[2021-10-14 03:20] LABS: Troponin I < 0.01 ng/ml (0.00-0.034)
== END 2021-10-14 03:59 | disposition home or self-care (01) ==
PROVIDERS: Emergency Provider Emergency Medicine; PCP Emergency Medicine
DX: I44.7 Left bundle-branch block, unspecified (principal); Z79.899 Other long term (current) drug therapy; E78.5 Hyperlipidemia, unspecified; I10 Essential (primary) hypertension; F32.A Depression, unspecified
CPT/HCPCS: 71046; 71275; 80048; 83735; 83880; 84145; 84484; 85025; 85651; 86140; 93005; 96365; 96375; 99285; C9803; Q9967; U0003; U0005

== ENCOUNTER → 2021-11-09 09:41 | Outpatient (POV) | payer MEDICAID, SELFPAY ==
[2021-11-09 09:55] VITALS: BP 161/77; PULSE 50; RESP 20; O2SAT 91; BMI 28.3
--- NOTE | 2021-11-09 12:52 | HMH.PAINSOAP ---
[facility] Pain Management SOAP Note Subjective:: Patient is a pleasant 56-year-old male who presents today for follow-up. We are currently treating the patient for degenerative disc disease of lumbar spine with lumbar radiculopathy symptoms. Today he rates his pain a 7 out of 10. He states the pain is all in his low back and radiates into his bilateral lower extremities. Patient denies any new trauma or injury to the site. Patient denies any change in the location or type of pain he experiences. Patient states that this is a dull, aching sensation that is worse with increased activity. Patient currently uses [id number]-fbrsfcm ibuprofen and muscle relaxers with some improvement of his symptoms. He states that the muscle relaxer does help him get to sleep at night. He has had 2 lumbar epidural steroid injections in the past. He is also had a medial branch block that only gave minimal relief. He has tried topical creams such as Biofreeze and lidocaine patches that have not helped. Patient has seen a chiropractor with no improvement of symptoms. He also has tried home stretching and exercises for more than 6 weeks with no relief. He is currently on Suboxone therapy that is given to him by Dr. Keane. Patient states he is currently scheduled to see his software development specialist today at 230. He states he does have a blockage patient states he is also scheduled to see a psychiatrist for his psych eval for his spinal cord stimulator trial on November 17. He is unsure whether or not if his software development specialist will have to do a procedure for his blockage. His John is [id number]. It has been reviewed and appropriate. Review of Systems: General: No recent weight changes, no fever, no sleep disturbances Respiratory: No cough, no shortness of air, no recurring pulmonary infections Cardiovascular/peripheral vascular: No chest pain, no palpitations, no edema, no shortness of breath Gastrointestinal: No new onset incontinence, normal bowel movements reported Genitourinary: No new onset incontinence Musculoskeletal: Low back pain Psychiatric: [Normal mood/affect] Neurological: [Denies weakness in extremities], [denies balance issues] Objective:: Physical Exam: General: Alert and oriented x3, no acute distress, pleasant and cooperative Lungs: Respirations even and unlabored, symmetrical chest expansion Eyes: PERRL Musculoskeletal: Flexion and extension of lumbar [spine] somewhat guarded secondary to pain, [antalgic gait noted] Neurological: Speech clear, no gross sensory deficit Assessment:: Degenerative disc disease of lumbar spine with lumbar radiculopathy symptoms Plan:: Patient is still experiencing significant pain in his low back that radiates down bilateral extremities. He would still like to continue forward with his spinal cord stimulator trial. He is scheduled for his psychiatric evaluation on November 17. He does also see his software development specialist today at 230. Patient is unsure whether or not if he needs refills on his Flexeril at this time. He states he would give us a call if he needs it. I have discussed with the patient that we will follow-up with him following his psych evaluation and also discuss at that visit what his software development specialist plans to do for his blockage. Patient has been instructed to contact the clinic with any concerns before the next appointment. Dr. Strong has reviewed this note and agrees with this plan of care. This note was dictated using voice recognition software and make contain errors or omissions. [facility] History I have reviewed the patient's past medical history: Yes Medical History: Reports:: Depression, Hyperlipidemia, Hypertension Denies:: Cancer, Diabetes Mellitus Type 1, Diabetes Mellitus Type 2, MRSA *Have you ever received a pneumonia vaccine?: No *Have you received a flu vaccine this season?: No Other Medical History: Reports: Anemia, Arthritis, Other Other Surgeries: Yes: No Previous Surgery Amputation: No Fractures: Yes (lt elbow) - *Soci
== END ==
PROVIDERS: PCP Emergency Medicine; Visit Provider Nurse Practitioner Family
DX: M51.16 Intervertebral disc disorders with radiculopathy, lumbar region (principal)
CPT/HCPCS: 99212; G0463

== ENCOUNTER → 2021-11-17 08:52 | Outpatient (CLI) | payer MEDICAID, SELFPAY | PROVIDERS: PCP Emergency Medicine; Visit Provider Nurse Practitioner | DX: R07.9 Chest pain, unspecified (principal); R06.00 Dyspnea, unspecified; I25.10 Atherosclerotic heart disease of native coronary artery without angina pectoris; I10 Essential (primary) hypertension; I44.7 Left bundle-branch block, unspecified; R94.31 Abnormal electrocardiogram [ECG] [EKG]; Z72.0 Tobacco use | CPT/HCPCS: 78452; 93017; 93306; A9502; J2785 ==

== ENCOUNTER → 2022-02-15 08:49 | Outpatient (POV) | payer MEDICAID, SELFPAY ==
[2022-02-15 09:03] VITALS: BP 164/75; PULSE 82; RESP 18; O2SAT 98; BMI 27.7
--- NOTE | 2022-02-15 12:45 | EXP.PAIN.SOA ---
[facility] Pain Management SOAP Note Subjective:: Patient is a pleasant 56-year-old male who presents today for follow-up. We are currently treating the patient for degenerative disc disease of lumbar spine with lumbar radiculopathy symptoms. Today he rates his pain a 5 out of 10. Patient denies any new trauma or injury. Patient denies any change location or type of pain he experiences. Patient continues to experience a dull, aching sensation that is worse with increased activity in his low back and bilateral lower extremities. Patient states the pain causes a significant decrease in function and he is frequently unable to perform activities of daily living like cooking and light housework due to the pain. Patient does use [id number]-[id number] ibuprofen with minimal improvement of his symptoms. At her last visit we did discuss starting him on a muscle relaxer however he states he did not receive this yet. Patient has had multiple injections in the past however these did not provide significant improvement of his symptoms. He has tried fptg-zag-sbfnslj Biofreeze and lidocaine patches that have not provided any additional relief. Patient has been to a chiropractor and physical therapy however these did not provide any additional improvement but worsened his pain symptoms. Patient continues to do at home exercising and stretching for longer than 6 weeks with minimal improvement. Patient is also on Suboxone therapy by Dr. Keane. Patient did go for his psychiatric evaluation and was deemed an appropriate candidate. Patient does see a editing clerk and states he has had a blockage in the past and will have to confirm that this procedure is even an option for him. Review of Systems: General: No recent weight changes, no fever, no sleep disturbances Respiratory: No cough, no shortness of air, no recurring pulmonary infections Cardiovascular/peripheral vascular: No chest pain, no palpitations, no edema, no shortness of breath Gastrointestinal: No new onset incontinence, normal bowel movements reported Genitourinary: No new onset incontinence Musculoskeletal: Low back pain, leg pain Psychiatric: [Normal mood/affect] Neurological: [Denies weakness in extremities], [denies balance issues] Objective:: Physical Exam: General: Alert and oriented x3, no acute distress, pleasant and cooperative Lungs: Respirations even and unlabored, symmetrical chest expansion Eyes: PERRL Musculoskeletal: Flexion and extension of lumbar [spine] somewhat guarded secondary to pain, [antalgic gait noted] Neurological: Speech clear, no gross sensory deficit Assessment:: Degenerative disc disease of lumbar spine with lumbar radiculopathy symptoms Plan:: Patient continues to experience significant pain in his low back that radiates into his lower extremities. Patient did have limited range of motion of his lumbar spine during today's visit. Patient has tried and failed conservative therapy such as oral medications, topicals, heat and ice, physical therapy, chiropractor, and at home exercising and stretching for longer than 6 weeks. I have discussed with the patient regarding proceeding forward with a spinal cord stimulator trial. Risk and benefits were reviewed with the patient and he would like to proceed forward with this plan of care. I will order him tizanidine 4 mg 3 times daily and provide a 1 month supply of this medication. We will contact his editing clerk and see if we can get cardiac clearance to proceed forward. We will submit to insurance for a spinal cord stimulator trial at today's visit and contact the patient once we have approval. Patient has been instructed to contact the clinic with any concerns before the next appointment. Dr. Strong has reviewed this note and agrees with this plan of care. This note was dictated using voice recognition software and make contain errors or omissions. [facility] Medical History Abnormal ECG Abno
== END | disposition home or self-care (01) ==
PROVIDERS: PCP Emergency Medicine; Visit Provider Nurse Practitioner Family
DX: M51.16 Intervertebral disc disorders with radiculopathy, lumbar region (principal)
CPT/HCPCS: 99212; G0463

== ENCOUNTER 2022-04-01 06:36 | Day surgery (SDC) | payer MEDICAID, SELFPAY ==
[2022-03-29 13:09] VITALS: BMI 23.7
[2022-04-01] VITALS (8 sets, daily range): BP systolic 114–163; BP diastolic 48–92; PULSE 80–95; RESP 16–18; TEMP 36.2–36.3; O2SAT 94–100
[2022-04-01 07:08] LABS: Basophils % 0.4 % (0.1-2.0); Eosinophils # 0.2 K/mm3 (0.0-0.4); Eosinophils % 2.7 % (0.1-12.0); Hematocrit 35.5 % (42.0-52.0); Hemoglobin 12.3 g/dL (14.1-18.0); Lymphocytes # 1.7 K/mm3 (0.7-4.5); Lymphocytes % 22.7 % (10-50); Mean Corpuscular HGB Conc 34.6 g/dL (31.8-35.4); Mean Corpuscular Hemoglobin 32.3 pg (27.0-31.2); Mean Corpuscular Volume 93.3 fl (80-94); Mean Platelet Volume 7.5 fl (7.4-10.4); Monocytes # 0.2 K/mm3 (0.1-1.0); Monocytes % 3.2 % (1.7-9.3); Neutrophils # 5.3 K/mm3 (1.8-7.8); Platelet Count 281 K/mm3 (142-424); Red Blood Count 3.81 M/mm3 (4.60-6.20); Red Cell Distribution Width 13.5 % (11.5-17.5); White Blood Count 7.5 K/mm3 (4.8-10.8)
--- NOTE | 2022-04-01 07:10 | P.PN_ITS ---
[facility] Disclaimer: The information contained in this section may have been updated after the patient was seen, as this information can be updated by other users. Medical History Abnormal ECG Abnormal PFT Chest pain COPD (chronic obstructive pulmonary disease) DJD (degenerative joint disease) Dyspnea on exertion Left bundle branch block (LBBB) Lung nodule Mild chronic obstructive pulmonary disease Sleep apnea Solitary pulmonary nodule Stopped smoking with greater than 30 pack year history Tobacco abuse counseling Tobacco abuse disorder Surgical History No significant past surgical history Family History Other Cancer Diabetes Social History (Updated 04/01/22 @ 06:42 by Torrie Clement RN) Smoking Status: Current every day smoker tobacco type: e-cigarettes second hand exposure: Yes alcohol intake: never substance use type: former substance user and heroin current occupational status: disabled Travel in the last 8 weeks: None household members: none housing: apartment caffeine: Yes [facility] Anesthesia Checklist Patient Identification Patient Identification: Arm Band and Family Structural Data Admitted From: Direct Admit Planned Operative Procedure/s: Left Hip Flaco Arthoplasty Consent for Planned Operative Procedure(s) Verified: Yes Verified Documents: Surgical Consent and History and Physical NPO Status Verified Time NPO: 00:00 Additional verifications Patient : No Anesthesia Reactions: No Hx Blood Transfusions: No Blood Transfusion Reaction: No Previous Colonoscopy: No Airway Assessment C-Spine Mobility Assessed: Yes TMJ Mobility Assessed: Yes Dentition: Edentulous Neurological Assessment Level of Consciousness: Awake, Alert, Appropriate and Follows Commands Hx Seizures: No Numbness or tingling in extremities: No Anesthesia Plan Anesthesia Risk discussed: Yes ASA Class: II Anesthesia Type: MAC w/Spinal
[2022-04-01 07:17] LABS: Anion Gap 10.5 mEq/L (5-15); Blood Urea Nitrogen 19 mg/dl (9-20); Calcium 8.7 mg/dl (8.4-10.2); Carbon Dioxide 27 mmol/L (22.0-30.0); Chloride 106 mmol/L (98-107); Creatinine Clearance Estimated 95 mL/min (50-200); Estimated Glomerular Filt Rate 77 ml/min (>60); GFR (African American) 94 ML/MIN (>60); Glucose 118 mg/dl (74-100); Potassium 3.5 mmoL/L (3.5-5.1); Sodium 140 mmol/L (136-145)
--- NOTE | 2022-04-01 08:15 | P.PN_ITS ---
[facility] Disclaimer: The information contained in this section may have been updated after the patient was seen, as this information can be updated by other users. Medical History Abnormal ECG Abnormal PFT Chest pain COPD (chronic obstructive pulmonary disease) DJD (degenerative joint disease) Dyspnea on exertion Left bundle branch block (LBBB) Lung nodule Mild chronic obstructive pulmonary disease Sleep apnea Solitary pulmonary nodule Stopped smoking with greater than 30 pack year history Tobacco abuse counseling Tobacco abuse disorder Surgical History No significant past surgical history Family History Other Cancer Diabetes Social History (Updated 04/01/22 @ 06:42 by Torrie Clement RN) Smoking Status: Current every day smoker tobacco type: e-cigarettes second hand exposure: Yes alcohol intake: never substance use type: former substance user and heroin current occupational status: disabled Travel in the last 8 weeks: None household members: none housing: apartment caffeine: Yes [facility] Anesthesia Checklist Patient Identification Patient Identification: Arm Band Structural Data Admitted From: Home Planned Operative Procedure/s: Neurostimulator Trial Placement under Fluoroscopy Consent for Planned Operative Procedure(s) Verified: Yes Verified Documents: Surgical Consent and History and Physical NPO Status Verified Time NPO: 00:00 Additional verifications Anesthesia Reactions: No Hx Blood Transfusions: No Blood Transfusion Reaction: No Airway Assessment C-Spine Mobility Assessed: Yes TMJ Mobility Assessed: Yes Dentition: Good Dentition Neurological Assessment Level of Consciousness: Awake and Alert Anesthesia Plan Anesthesia Risk discussed: Yes Anesthesia Plan: Verified ASA Class: III Anesthesia Type: MAC
--- NOTE | 2022-04-01 08:44 | EXP.OP.NOTE ---
Date of procedure: 04/01/22 Pre-op Diagnosis:: Degenerative disc disease of lumbar spine with lumbar radiculopathy symptoms Post-op Diagnosis:: Same Procedure performed:: Spinal cord stimulator trial with epidural lead placement x2 Surgeon:: Cristi Strong MD RECYCLING CREW SUPERVISOR:: James Heart Anesthesia: MAC Estimated blood loss (mL): 1 Clinical Note:: This patient is a pleasant 56-year-old white male who we are treating for low back pain with lumbar radicular symptoms. He has failed all previous conservative treatments including injections, oral medications, physical therapy and is not a candidate for any surgery. Most of his pain is in the back rating down both legs. He has a successful psychological evaluation. He presents for spinal cord stimulator trial today Operative findings:: None Operative note:: Informed consent was obtained the risk and benefits of the procedure were explained to the patient. Patient was taken the operating room placed prone on the procedure table. He was prepped and draped in sterile fashion. C-arm fluoroscopy was used to view the lumbar spine. The skin and subtenons tissues were anesthetized using lidocaine. I placed a 17-gauge epidural needle and advanced into the L1-L2 interspace. After confirmation of needle placement in the epidural space stimulating lead was inserted and advanced very easily to the T7-T8-T9 vertebral body. A second needle was inserted and advanced again into the L1-L2 interspace. Again after confirmation of needle placement in the epidural space a second stimulating lead was inserted and advanced very easily to the T7-T8-T9 vertebral body. Stylets were removed. [place] were removed. The leads were checked in AP and lateral views and found to be in good position. The leads were secured in place. Patient tolerated the procedure well. Patient was brought back to recovery in stable condition. Patient was programmed by the [employer] territory representative with good stimulation in all areas of pain. Patient was discharged home neurologically intact with good relief of pain symptoms. We will discharge him home on Bactrim DS twice a day for 5 days. We will see him back in 1 week for lead pull. We will continue to make changes every day to optimize outcome. Condition: stable Disposition: PACU Complications:: None
--- NOTE | 2022-04-01 09:03 | SUR.PHASEII ---
rep at bedside educating patient.
== END 2022-04-01 10:04 | disposition home or self-care (01) ==
PROVIDERS: PCP Emergency Medicine; Visit Provider Anesthesiology
PROC: (CPT 63650; principal; 2022-04-01 07:30)
DX: M51.16 Intervertebral disc disorders with radiculopathy, lumbar region (principal); Z72.0 Tobacco use; Z79.899 Other long term (current) drug therapy
CPT/HCPCS: 63650 ×2; 80048; 85025; 96374; C1778; J3370

== ENCOUNTER → 2022-04-07 12:49 | Outpatient (POV) | payer MEDICAID, SELFPAY ==
--- NOTE | 2022-04-07 13:28 | EXP.PAIN.SOA ---
[facility] Pain Management SOAP Note Subjective:: Patient is a pleasant 56-year-old male who presents today for spinal cord stimulator trial follow-up. We are currently treating the patient for degenerative disc disease of lumbar spine with lumbar radiculopathy symptoms 0333 today the patient rates his pain a 2 out of 10. Patient denies any new trauma or injury. Patient denies any change location or type of pain he experiences. Patient did just have his spinal cord stimulator trial placed last Monday and states that he has had at least 50% improvement following this procedure. Patient states he has been able to increase his activity and do more things around the house with decreased pain symptoms. Patient states he has had overall improvement that was significant enough that he would like to proceed forward with the spinal cord stimulator implant. Patient does take diclofenac 75 mg twice daily along with tizanidine 4 mg 3 times daily with minimal improvement. Patient did have a psychiatric evaluation and was deemed an appropriate candidate for this implant. Patient does see a skin diving teacher on a regular basis for a prior blockage and has been given cardiac clearance as well. Patient is currently managed with diazepam 5 mg 4 times a day from his primary care doctor and is on Suboxone therapy from an outside provider. Patient denies any side effects from these medications. Patient has been to a chiropractor and physical therapy however these actually worsened his pain symptoms. Patient does continue to do at home stretching and exercise techniques for longer than 6 weeks with minimal improvement. Patient does also use Biofreeze and lidocaine patches and heating pad however he states there is no relief with these. His John is [id number]. Its been reviewed and appropriate. Review of Systems: General: No recent weight changes, no fever, no sleep disturbances Respiratory: No cough, no shortness of air, no recurring pulmonary infections Cardiovascular/peripheral vascular: No chest pain, no palpitations, no edema, no shortness of breath Gastrointestinal: No new onset incontinence, normal bowel movements reported Genitourinary: No new onset incontinence Musculoskeletal: Low back pain, bilateral leg pain Psychiatric: [Normal mood/affect] Neurological: [Denies weakness in extremities], [denies balance issues] Objective:: Physical Exam: General: Alert and oriented x3, no acute distress, pleasant and cooperative Lungs: Respirations even and unlabored, symmetrical chest expansion Eyes: PERRL Musculoskeletal: Flexion and extension of lumbar [spine] somewhat guarded secondary to pain, [antalgic gait noted] Neurological: Speech clear, no gross sensory deficit ORT score updated with minimal risk Assessment:: Degenerative disc disease of lumbar spine with lumbar radiculopathy symptoms Plan:: Patient has had significant improvement following his spinal cord stimulator trial. Patient rated his improvement of at least 50% if not more. Patient did have increased ability to perform activities of daily living and range of motion exercises. Patient has tried and failed conservative therapies such as oral medications, injections, topicals, heat and ice, physical therapy, chiropractor, at home exercising and stretching for longer than 6 weeks. We will submit to insurance for approval for the spinal cord stimulator implant. We will contact the patient once we have this approval. Patient has been instructed to contact the clinic with any concerns before the next appointment. Dr. Strong has reviewed this note and agrees with this plan of care. This note was dictated using voice recognition software and make contain errors or omissions. [facility] Disclaimer: The information contained in this section may have been updated after the patient was seen, as this information can be updated by other users. Medical History Abnormal ECG
[2022-04-07 13:36] VITALS: BP 141/78; PULSE 100; RESP 20; BMI 23.1
== END ==
PROVIDERS: PCP Emergency Medicine; Visit Provider Nurse Practitioner Family
DX: M51.16 Intervertebral disc disorders with radiculopathy, lumbar region (principal)
CPT/HCPCS: 99212; G0463

== ENCOUNTER 2022-06-03 06:29 | Day surgery (SDC) | payer MEDICAID, SELFPAY ==
[2022-05-03 13:56] VITALS: BMI 25.0
[2022-06-03 06:44] VITALS: BP 165/78; PULSE 69; RESP 18; TEMP 36.7; O2SAT 99
[2022-06-03 07:00] LABS: Basophils # 0.1 K/mm3 (0-0.2); Basophils % 1.5 % (0.1-2.0); Eosinophils # 0.2 K/mm3 (0.0-0.4); Eosinophils % 3.1 % (0.1-12.0); Hematocrit 40.6 % (42.0-52.0); Lymphocytes # 2.4 K/mm3 (0.7-4.5); Lymphocytes % 31.7 % (10-50); Mean Corpuscular HGB Conc 32.1 g/dL (31.8-35.4); Mean Corpuscular Hemoglobin 30.5 pg (27.0-31.2); Mean Corpuscular Volume 94.9 fl (80-94); Mean Platelet Volume 7.4 fl (7.4-10.4); Monocytes # 0.3 K/mm3 (0.1-1.0); Monocytes % 3.5 % (1.7-9.3); Neutrophils # 4.5 K/mm3 (1.8-7.8); Neutrophils % 60.3 % (37.0-80.0); Platelet Count 259 K/mm3 (142-424); Red Blood Count 4.28 M/mm3 (4.60-6.20); Red Cell Distribution Width 13.5 % (11.5-17.5); White Blood Count 7.5 K/mm3 (4.8-10.8)
[2022-06-03 07:04] LABS: Chloride 99 mmol/L (98-107)
[2022-06-03 07:05] LABS: Potassium 3.1 mmoL/L (3.5-5.1); Sodium 138 mmol/L (136-145)
[2022-06-03 07:07] LABS: Blood Urea Nitrogen 10 mg/dl (9-20); Creatinine Clearance Estimated 122 mL/min (50-200); Estimated Glomerular Filt Rate 100 ml/min (>60); GFR (African American) 121 ML/MIN (>60)
[2022-06-03 07:08] LABS: Anion Gap 10.1 mEq/L (5-15); Calcium 8.5 mg/dl (8.4-10.2); Carbon Dioxide 32 mmol/L (22.0-30.0); Glucose 102 mg/dl (74-100)
--- NOTE | 2022-06-03 07:29 | EXP.ANES.CKL ---
[facility] Disclaimer: The information contained in this section may have been updated after the patient was seen, as this information can be updated by other users. Medical History Abnormal ECG Abnormal PFT Chest pain COPD (chronic obstructive pulmonary disease) DJD (degenerative joint disease) Dyspnea on exertion Left bundle branch block (LBBB) Lung nodule Mild chronic obstructive pulmonary disease Sleep apnea Solitary pulmonary nodule Stopped smoking with greater than 30 pack year history Tobacco abuse counseling Tobacco abuse disorder Surgical History No significant past surgical history Family History Other Cancer Diabetes Social History (Updated 06/03/22 @ 06:44 by Bill Sullivan RN) Smoking Status: Current every day smoker tobacco type: e-cigarettes second hand exposure: Yes alcohol intake: former substance use type: former substance user and heroin current occupational status: other Travel in the last 8 weeks: None household members: none housing: apartment caffeine: Yes [facility] Anesthesia Checklist Patient Identification Patient Identification: Arm Band and Verbal (Name & ) Structural Data Admitted From: Home Planned Operative Procedure/s: Pain Pump Placement Consent for Planned Operative Procedure(s) Verified: Yes Verified Documents: Surgical Consent NPO Status Verified Time NPO: 00:00 Additional verifications Anesthesia Reactions: No Hx Blood Transfusions: No Blood Transfusion Reaction: No Airway Assessment C-Spine Mobility Assessed: Yes TMJ Mobility Assessed: Yes Dentition: Edentulous Anesthesia Plan ASA Class: II Anesthesia Type: MAC
[2022-06-03 09:54] VITALS: BP 161/96; PULSE 79; RESP 17; TEMP 36.3; O2SAT 99
[2022-06-03 10:04] VITALS: BP 181/97; PULSE 71; RESP 16; O2SAT 98
[2022-06-03 10:14] VITALS: BP 146/85; PULSE 71; RESP 18; O2SAT 100
--- NOTE | 2022-06-03 10:14 | P.OP_ITS ---
Date of procedure: 06/03/22 Pre-op Diagnosis:: Degenerative disc disease of lumbar spine with lumbar radiculopathy symptoms Post-op Diagnosis:: Same Procedure performed:: Permanent placement of spinal cord stimulator with epidural lead placement x2 and generator placement Surgeon:: Cristi Strong MD CAT SKINNER:: Wayne Black Anesthesia: MAC Estimated blood loss (mL): 5 Clinical Note:: This patient is a pleasant 56-year-old white male who we are treating for low back pain with lumbar radicular symptoms. He has failed all previous conservative treatments including injections, oral medications, physical therapy and is not a candidate for surgery. He has had a successful psychological evaluation. He has had a successful intrathecal pump trial. He was 89% better. He presents for permanent placement of his spinal cord stimulator today. Operative findings:: None Operative note:: Informed consent was obtained the risk and benefits of the procedure were explained to the patient. The patient was taken the operating room placed prone on the procedure table. He was prepped and draped in sterile fashion. C-arm fluoroscopy was used to view the lumbar spine. The skin and subcutaneous tissues were anesthetized using lidocaine. I made an incision and dissected down to the lumbar paraspinous fascia. A 17-gauge spinal needle was then inserted into the L1-L2 interspace. After confirmation needle placement in the epidural space a stimulating lead was inserted and advanced very easily to the T7-T8 vertebral body. There was some scar tissue at the T7 vertebral body that could lead placement however we were able to get 1-lead left of midline. A second needle was inserted and advanced into the L1-L2 interspace. Again after confirmation of needle placement in the epidural space a stimulating lead was inserted and with some difficulty we readjusted this lead however it was right of midline. The leads were not close together however they did cover the left and right of midline. Leads were checked to be posterior and lateral view. The stylets and needles were removed. The leads were secured to the fascia with anchoring devices and 2-0 Prolene. The generator pocket was created on the right flank. I tunneled the leads to the generator pocket and attached the leads to the generator. Impedances were checked and found to be okay. Both incisions were then closed with 2-0 Vicryl followed by 4-0 nylon and zane. Patient tolerated the procedure well with no complications. Patient was discharged home neurologic intact with good relief of pain symptoms. Patient was programmed by the [employer] termite control service representative with good stimulation in all areas of pain. Plan and disposition: We will follow-up with this patient in 1 week for wound check. We will follow-up in 2 weeks for suture and staple removal. Condition: stable Disposition: PACU Complications:: none
[2022-06-03 10:24] VITALS: BP 168/84; PULSE 71; RESP 18; O2SAT 100
== END 2022-06-03 10:30 | disposition home or self-care (01) ==
PROVIDERS: PCP Emergency Medicine; Visit Provider Anesthesiology
PROC: (CPT 63685; principal; 2022-06-03 07:30)
DX: M51.16 Intervertebral disc disorders with radiculopathy, lumbar region (principal); F17.210 Nicotine dependence, cigarettes, uncomplicated; Z79.899 Other long term (current) drug therapy
CPT/HCPCS: 63685; 63650 ×2; 80048; 85025; 96374; C1778; C1820

== ENCOUNTER → 2022-06-16 11:25 | Outpatient (POV) | payer MEDICAID, SELFPAY ==
[2022-06-16 11:49] VITALS: BP 124/95; PULSE 89; RESP 18; O2SAT 98; BMI 23.7
--- NOTE | 2022-06-16 11:59 | EXP.PAIN.SOA ---
[facility] Pain Management SOAP Note Subjective:: Patient is a pleasant 56-year-old male who presents today for 2-week follow-up of spinal cord stimulator placement. We are currently treating the patient for degenerative disc disease of lumbar spine with lumbar radiculopathy symptoms. Today he rates his pain a 7 out of 10. Patient denies any new trauma or injury. Patient denies any additional issues following this procedure. He does state that he believes he needs some additional programming on his [employer] stimulator. He does state he continues to have additional improvement with the spinal cord stimulator. Patient is currently managed with diclofenac 75 mg twice a day and tizanidine 4 mg 3 times a day. Patient denies any side effects from this medication. He is also prescribed Suboxone therapy from an outside provider. Patient has recently been arrested and is currently in the [facility] shelter center he does present today with a event av operator during our visit. His John is [id number]. Its been reviewed and appropriate. Review of Systems: General: No recent weight changes, no fever, no sleep disturbances Respiratory: No cough, no shortness of air, no recurring pulmonary infections Cardiovascular/peripheral vascular: No chest pain, no palpitations, no edema, no shortness of breath Gastrointestinal: No new onset incontinence, normal bowel movements reported Genitourinary: No new onset incontinence Musculoskeletal: Low back pain Psychiatric: [Normal mood/affect] Neurological: [Denies weakness in extremities], [denies balance issues] Objective:: Physical Exam: General: Alert and oriented x3, no acute distress, pleasant and cooperative Lungs: Respirations even and unlabored, symmetrical chest expansion Eyes: PERRL Musculoskeletal: Flexion and extension of lumbar [spine] somewhat guarded secondary to pain, [antalgic gait noted] Neurological: Speech clear, no gross sensory deficit Skin: Incision sites clean, dry, well approximated with minimal erythema and zane and suture intact Assessment:: Degenerative disc disease of lumbar spine with lumbar radiculopathy symptoms Plan:: Patient is experiencing more pain in and around his low back during today's visit. His incision sites are clean, dry, well approximated with minimal erythema and sutures and zane intact. I have discussed with the patient to continue his postop restrictions of minimal bending, lifting, twisting no submerging in water until his incision is fully healed and to continue wearing his abdominal binder to prevent seroma. Patient has been counseled that next week we will plan on removing the sutures and zane and apply Steri-Strips if indicated. I have also counseled the patient that I will contact [employer] sales representative to be present for next week's visit to have him reprogrammed additionally. I will refill his diclofenac 75 mg twice daily and tizanidine 4 mg 3 times daily and provide a 1 month supply of this medication. Patient will return to clinic in 1 week for reevaluation of symptoms and plan of care. Patient has been instructed to contact the clinic with any concerns before the next appointment. Dr. Strong has reviewed this note and agrees with this plan of care. This note was dictated using voice recognition software and make contain errors or omissions. [facility] Disclaimer: The information contained in this section may have been updated after the patient was seen, as this information can be updated by other users. Medical History Abnormal ECG Abnormal PFT Chest pain COPD (chronic obstructive pulmonary disease) DJD (degenerative joint disease) Dyspnea on exertion Left bundle branch block (LBBB) Lung nodule Mild chronic obstructive pulmonary disease Sleep apnea Solitary pulmonary nodule Stopped smoking with greater than 30 pack year history Tobacco abuse counseling Tobacco abuse disorder Surgica
== END | disposition home or self-care (01) ==
PROVIDERS: PCP Emergency Medicine; Visit Provider Nurse Practitioner Family
DX: M51.16 Intervertebral disc disorders with radiculopathy, lumbar region (principal)
CPT/HCPCS: 99212; G0463

== ENCOUNTER → 2022-06-22 10:09 | Outpatient (POV) | payer MEDICAID, SELFPAY ==
[2022-06-22 10:49] VITALS: BP 118/98; PULSE 78; RESP 18; O2SAT 97; BMI 24.4
--- NOTE | 2022-06-22 11:07 | EXP.PAIN.SOA ---
[facility] Pain Management SOAP Note Subjective:: Patient is a pleasant 56-year-old male who presents for follow-up. We are currently treating the patient for degenerative disc disease of lumbar spine with lumbar radiculopathy symptoms. Today he rates his pain a 8 out of 10. Patient denies any new trauma or injury. Patient denies any change to location or type of pain he experiences. Patient did have a spinal cord stimulator implanted on 06/03/2022. He does continue to do well following this procedure. Patient does present with destinee during his visit. Patient is scheduled to see the [employer] representatives today for additional reprogramming of his device. He is currently managed with diclofenac 75 mg daily and tizanidine 4 mg 3 times a day. Patient denies any side effects from these medications. He is prescribed Suboxone therapy from an outside provider. His John is [id number]. It has been reviewed and appropriate. Review of Systems: General: No recent weight changes, no fever, no sleep disturbances Respiratory: No cough, no shortness of air, no recurring pulmonary infections Cardiovascular/peripheral vascular: No chest pain, no palpitations, no edema, no shortness of breath Gastrointestinal: No new onset incontinence, normal bowel movements reported Genitourinary: No new onset incontinence Musculoskeletal: Low back pain Psychiatric: [Normal mood/affect] Neurological: [Denies weakness in extremities], [denies balance issues] Objective:: Physical Exam: General: Alert and oriented x3, no acute distress, pleasant and cooperative Lungs: Respirations even and unlabored, symmetrical chest expansion Eyes: PERRL Musculoskeletal: Flexion and extension of lumbar [spine] somewhat guarded secondary to pain, [antalgic gait noted] Neurological: Speech clear, no gross sensory deficit Assessment:: Degenerative disc disease of lumbar spine with lumbar radiculopathy symptoms Plan:: Patient continues to do well following his spinal cord stimulator placement. His incisions are clean, dry, well approximated with minimal erythema noted. He did have all of his sutures removed during today's visit however zane were left in place. Patient was able to get reprogrammed by [employer] fundraising sale representative and did have significant coverage. She was able to give him several programs and he is doing well with no additional complaints. I have instructed the patient to continue his postop restrictions of minimal bending, lifting or twisting no submerging in tub water and to continue to wear his abdominal binder. Patient will return to clinic in 1 week for reevaluation of symptoms and removal of his zane if indicated. Patient has been instructed to contact the clinic with any concerns before the next appointment. Dr. Strong has reviewed this note and agrees with this plan of care. This note was dictated using voice recognition software and make contain errors or omissions. [facility] Disclaimer: The information contained in this section may have been updated after the patient was seen, as this information can be updated by other users. Medical History Abnormal ECG Abnormal PFT Chest pain COPD (chronic obstructive pulmonary disease) DJD (degenerative joint disease) Dyspnea on exertion Left bundle branch block (LBBB) Lung nodule Mild chronic obstructive pulmonary disease Sleep apnea Solitary pulmonary nodule Stopped smoking with greater than 30 pack year history Tobacco abuse counseling Tobacco abuse disorder Surgical History No significant past surgical history Family History Other Cancer Diabetes Social History (Updated 06/03/22 @ 06:44 by Bill Sullivan RN) Smoking Status: Current every day smoker tobacco type: e-cigarettes second hand exposure: Yes alcohol intake: former subs
== END ==
PROVIDERS: PCP Emergency Medicine; Visit Provider Nurse Practitioner Family
DX: M51.16 Intervertebral disc disorders with radiculopathy, lumbar region (principal)
CPT/HCPCS: 99212; 99213; G0463

== ENCOUNTER → 2022-06-29 13:22 | Outpatient (POV) | payer MEDICAID, SELFPAY ==
--- NOTE | 2022-06-29 13:57 | EXP.PAIN.SOA ---
[facility] Pain Management SOAP Note Subjective:: Patient is a pleasant 56-year-old male who presents today for follow-up of spinal cord stimulator implantation on 06/03/2022. We are currently treating the patient for degenerative disc disease of lumbar spine with lumbar radiculopathy symptoms. Today he rates his pain a 6 out of 10. Patient denies any new trauma or injury. Patient denies any change to location or type of pain he experiences. Patient did have his spinal cord stimulator reprogrammed during his last visit and he states this is done well and has had pain improvement. Patient is currently managed with diclofenac 75 mg daily and tizanidine 4 mg 3 times a day. Patient is also prescribed Suboxone therapy from an outside provider. Patient does present today in office with destinee due to recent incarceration related drug charges and is currently being held at [facility]. Patient denies any additional problems following his spinal cord stimulator implant. His John is [id number]. Its been reviewed and appropriate. Review of Systems: General: No recent weight changes, no fever, no sleep disturbances Respiratory: No cough, no shortness of air, no recurring pulmonary infections Cardiovascular/peripheral vascular: No chest pain, no palpitations, no edema, no shortness of breath Gastrointestinal: No new onset incontinence, normal bowel movements reported Genitourinary: No new onset incontinence Musculoskeletal: Low back pain Psychiatric: [Normal mood/affect] Neurological: [Denies weakness in extremities], [denies balance issues] Objective:: Physical Exam: General: Alert and oriented x3, no acute distress, pleasant and cooperative Lungs: Respirations even and unlabored, symmetrical chest expansion Eyes: PERRL Musculoskeletal: Flexion and extension of lumbar [spine] somewhat guarded secondary to pain, [antalgic gait noted] Neurological: Speech clear, no gross sensory deficit Incision site clean, dry, well approximated with minimal erythema no drainage noted Assessment:: Degenerative disc disease of lumbar spine with lumbar radiculopathy symptoms Plan:: Patient is doing well following his spinal cord stimulator procedure. His incision sites are clean, dry, well approximated with no erythema or drainage noted. The remaining of his zane were removed during today's visit and skin glue and Steri-Strips applied. I have counseled the patient to continue his 6-week postop restrictions with minimal bending, lifting, twisting, no submerging in tub bathing and to continue wearing his abdominal binder. Patient states he is hoping to go to drug court on August 19 and he would like to make his next follow-up visit following that timeframe. Patient will return to clinic in 2 months for reevaluation of symptoms, medication refill and follow-up. Patient has been instructed to contact the clinic with any concerns before the next appointment. Dr. Strong has reviewed this note and agrees with this plan of care. This note was dictated using voice recognition software and make contain errors or omissions. [facility] Disclaimer: The information contained in this section may have been updated after the patient was seen, as this information can be updated by other users. Medical History Abnormal ECG Abnormal PFT Chest pain COPD (chronic obstructive pulmonary disease) DJD (degenerative joint disease) Dyspnea on exertion Left bundle branch block (LBBB) Lung nodule Mild chronic obstructive pulmonary disease Sleep apnea Solitary pulmonary nodule Stopped smoking with greater than 30 pack year history Tobacco abuse counseling Tobacco abuse disorder Surgical History No significant past surgical history Family History Other Cancer Diabetes Social History (Updated 06/03/22 @ 06:44 by Bill Martel
[2022-06-29 14:16] VITALS: BP 161/77; PULSE 75; RESP 18; O2SAT 97; BMI 23.7
== END ==
PROVIDERS: PCP Emergency Medicine; Visit Provider Nurse Practitioner Family
DX: M51.16 Intervertebral disc disorders with radiculopathy, lumbar region (principal)
CPT/HCPCS: 99212; 99213; G0463

== ENCOUNTER 2022-08-13 05:27 | Emergency (ER) | payer MEDICAID, SELFPAY ==
[2022-08-13 05:39] VITALS: BP 182/97; PULSE 103; RESP 16; TEMP 36.6; O2SAT 98; BMI 25.3
[2022-08-13 05:58] VITALS: BP 165/70; PULSE 75; RESP 16; TEMP 36.8; O2SAT 98
--- NOTE | 2022-08-13 06:10 | HMH.EDBACK ---
Discharge Plan Disposition Patient Disposition: Home, Self-Care Condition: Good Prescriptions Prescriptions: No Action lisinopril 20 mg tablet 20 mg PO DAILY Qty: 90 3RF Rx Instructions: TAKE ONE TABLET BY MOUTH ONCE A DAY diazepam 5 mg tablet 10 mg PO DIRECTED Qty: 120 2RF Rx Instructions: Take 1 tablet BID and 2 tablets QHS albuterol sulfate 90 mcg/actuation HFA aerosol inhaler 1 inh IH QID PRN (Reason: shortness of breath or wheezing) 90 Days Qty: 8.5 12RF quetiapine 25 mg tablet See Rx Instructions .ROUTE .COMPLEX Qty: 30 0RF Dose Instruction: TAKE ONE TABLET BY MOUTH AT BEDTIME Rx Instructions: TAKE ONE TABLET BY MOUTH AT BEDTIME trazodone 150 MG tablet 150 mg PO HS tiotropium-olodaterol 4 GM mist 2 puff IH DAILY (DME) blood pressure monitor Kit See Rx Instructions MISCELLANEOUS Rx Instructions: As directed pantoprazole 40 mg tablet,delayed release (DR/EC) See Rx Instructions .ROUTE .COMPLEX Rx Instructions: TAKE ONE TABLET BY MOUTH ONCE A DAY atorvastatin 10 mg tablet 10 mg PO DAILY Rx Instructions: TAKE ONE TABLET BY MOUTH AT BEDTIME sildenafil 25 mg tablet See Rx Instructions .ROUTE .COMPLEX Rx Instructions: TAKE 1 TO 2 TABLETS BY MOUTH 30 MINS TO 4 HOURS PRIOR TO SEXUAL ACTIVITY NEEDED tizanidine 4 MG tablet 4 mg PO TID Qty: 90 0RF diclofenac sodium 75 MG tablet,delayed release (DR/EC) 75 mg PO BID Qty: 60 0RF prednisone 20 mg tablet 20 mg PO BID Qty: 10 0RF Referrals Follow up/Referrals: Uriel Damon MD [Primary Care Provider] - See instructions Clinical Impressions Clinical Impression: Chronic back pain, Lumbar radicular pain, HTN (hypertension) Instructions Patient Instructions: DI for Low Back Pain Discharge ED Provider: Nelson (ED)Uriel Back Pain HPI General Chief Complaint: Back Pain/Injury Stated Complaint: Lower back pain,has back surgery 06/03/22 Time Seen by Provider: 08/13/22 05:45 Mode of Arrival: Family Vehicle Source of Information: Patient and Medical Record Limitations: No Limitations Description of Symptoms (Recalled from ER Triage Doc. by RN): 56 yo male presents with CC of acute on chronic back pain mid-low back that he states has been ongoing for the last year or so, that he had a TENS unit placed per Dr Strong on 06/03/22 and has had no improvement since the placement in his pain. According to him,he hasn't slept for 2 days . Difficulty with position changes. History of Present Illness HPI Narrative: pt with increased back pain - has seen dr strong - pt is uncertain as to what he has pain pump vs stim - no neuro sx and no cauda equina sx - no fever MD Complaint: back pain Onset (ago): week(s) Duration: constant Similar Symptoms Previously: Yes Location: lumbar spine Severity: moderate Pertinent Issues R/T Back Pain: Pain Management Services and Pain Pump in place Treatments prior to arrival: other medications Related Data Home Medications Medication Instructions Recorded Confirmed tiotropium 2.5 mcg-olodaterol 2.5 2 puff inhalation DAILY Breathing 07/06/21 08/11/22 mcg/actuation mist for inhalation problems trazodone 150 mg tablet 150 mg PO HS SLEEP 07/06/21 08/11/22 blood pressure monitor 02/15/22 08/11/22 pantoprazole 40 mg tablet,delayed See Rx Instructions .Route 02/15/22 08/11/22 release .COMPLEX STOMACH atorvastatin 10 mg tablet 10 mg PO DAILY Cholesterol 04/01/22 08/11/22 sildenafil 25 mg tablet See Rx Instructions .Route 06/03/22 08/11/22 .COMPLEX erectile dysfunction Previous Rx's Medication Instructions Recorded albuterol sulfate 90 mcg/actuation 1 inh inhalation QID PRN shortness 07/22/21 aerosol inhaler of breath or wheezing 90 days #8.5 grams lisinopril 20 mg tablet 20 mg PO DAILY BLOOD PRESSURE #90 11/09/21 tabs diazepam 5 mg tablet 10 mg PO DIRECTED NERVES #120 05/04/22 tabs diclofena
== END 2022-08-13 06:21 | disposition home or self-care (01) ==
LOC: ER 06:05
PROVIDERS: Emergency Provider Emergency Medicine; PCP Emergency Medicine
DX: M54.16 Radiculopathy, lumbar region (principal); G89.29 Other chronic pain; I10 Essential (primary) hypertension; F17.290 Nicotine dependence, other tobacco product, uncomplicated
CPT/HCPCS: 96372; 99284

== ENCOUNTER → 2022-08-15 13:30 | Outpatient (CLI) | payer MEDICAID, SELFPAY ==
[2022-08-15 18:08] LABS: Benzodiazepines Screen,Urine Positive ng/ml (<200)
[2022-08-15 18:09] LABS: Amphetamine/Metha Screen,Urine Negative ng/ml (<1000); Barbiturates Screen,Urine Negative ng/ml (<200)
[2022-08-15 18:10] LABS: Cannabinoid Screen,Urine Negative ng/ml (<50); Cocaine Screen,Urine Negative ng/ml (<300)
[2022-08-15 18:11] LABS: Methadone Screen,Urine Negative ng/ml (<300)
[2022-08-15 18:12] LABS: Opiate Screen,Urine Negative ng/ml (<300); Phencyclidine Screen,Urine Negative ng/ml (<25)
== END ==
PROVIDERS: PCP Emergency Medicine; Visit Provider Emergency Medicine
DX: G89.29 Other chronic pain (principal); M54.9 Dorsalgia, unspecified
CPT/HCPCS: 80305

== ENCOUNTER → 2022-08-17 14:04 | Outpatient (POV) | payer MEDICAID, SELFPAY ==
--- NOTE | 2022-08-17 14:30 | EXP.PAIN.SOA ---
[facility] Pain Management SOAP Note Subjective:: Patient is a pleasant 56-year-old male who presents today for follow-up. We are currently treating the patient for degenerative disc disease of the lumbar spine with lumbar radiculopathy symptoms. Today he rates his pain an 8 out of 10. Patient denies any new trauma or injury. Patient denies any change location or type of pain he experiences. He does state he is having significant pain in his low back with radiating symptoms into his lower extremities. Patient has not been able to meet with [employer] sales representative jewelry for reprogramming following his release from long term about a week ago. Patient was housed at the [facility] for some time related to drug charges. Patient states that he is requesting pain medication at today's visit. He is currently managed with tizanidine 4 mg 3 times a day, diclofenac 75 mg daily and did just get a recent prednisone prescription of 20 mg twice daily for 5 days. Patient is on Suboxone therapy from an outside provider. Patient was given 10 tablets of tramadol [address] Damon's office on the and is also prescribed diazepam 5 mg 4 times a day from Dr. Damon's office. Patient denies any side effects from this medication. He states that Dr. Damon's office will not prescribe any additional pain medication without our office giving approval. His John is [id number]. Its been reviewed and appropriate. Review of Systems: General: No recent weight changes, no fever, no sleep disturbances Respiratory: No cough, no shortness of air, no recurring pulmonary infections Cardiovascular/peripheral vascular: No chest pain, no palpitations, no edema, no shortness of breath Gastrointestinal: No new onset incontinence, normal bowel movements reported Genitourinary: No new onset incontinence Musculoskeletal: Low back pain Psychiatric: [Normal mood/affect] Neurological: [Denies weakness in extremities], [denies balance issues] Objective:: Physical Exam: General: Alert and oriented x3, no acute distress, pleasant and cooperative Lungs: Respirations even and unlabored, symmetrical chest expansion Eyes: PERRL Musculoskeletal: Flexion and extension of lumbar [spine] somewhat guarded secondary to pain, [antalgic gait noted] Neurological: Speech clear, no gross sensory deficit Assessment:: Degenerative disc disease of lumbar spine with lumbar radiculopathy symptoms Plan:: Patient is experiencing worsening pain in his low back and legs with limited range of motion. [employer] sales representative [employer] was unfortunately held up in surgical procedures at another hospital facility today and was unavailable to meet for his appointment. I have contacted sales representative jewelry and discussed getting in contact with patient for reprogramming as soon as possible. Patient was also given representatives cell phone. I have counseled the patient that we will not give any opioid medications due to his previous drug history and recent incarceration with drug charges. Patient was given a month supply of his muscle relaxer and diclofenac on Monday and is still currently on prednisone. Patient was also given a Toradol injection from his primary care doctor on Monday. We will follow-up with the patient after he meets with [employer] sales representative [employer] for reprogramming. Patient has been instructed to contact the clinic with any concerns before the next appointment. Dr. Strong has reviewed this note and agrees with this plan of care. This note was dictated using voice recognition software and make contain errors or omissions. [facility] Disclaimer: The information contained in this section may have been updated after the patient was seen, as this information can be updated by other users. Medical History Abnormal ECG Abnormal PFT Chest pain COPD (chronic obstructive pulmonary disease) DJD (degenerative joint disease) Dyspnea on exertion
[2022-08-17 15:07] VITALS: BP 170/77; PULSE 98; RESP 18; O2SAT 98; BMI 25.7
== END ==
PROVIDERS: PCP Emergency Medicine; Visit Provider Nurse Practitioner Family
DX: M51.16 Intervertebral disc disorders with radiculopathy, lumbar region (principal)
CPT/HCPCS: 99212; G0463

== ENCOUNTER → 2022-10-31 13:32 | Outpatient (POV) | payer MEDICAID, SELFPAY ==
--- NOTE | 2022-10-31 14:14 | EXP.PAIN.SOA ---
[facility] Pain Management SOAP Note Subjective:: Patient is a pleasant 57-year-old male who presents today for follow-up. We are currently treating the patient for degenerative disc disease of the lumbar spine with lumbar radiculopathy symptoms. Today he rates his pain a 7 out of 10. Patient denies any new trauma or injury. He denies any change to location or type of pain he experiences. He continues to state he has significant low back pain that is present on a daily basis. Patient does have a [employer] spinal cord stimulator in place that he did meet with the rental sales representative on Monday to have reprogrammed however it was found to be that one of his leads had 6 contacts out of reach and that imaging did show that they had moved. Patient is currently managed with tizanidine 4 mg 3 times a day, diclofenac 75 mg twice daily. Patient denies any side effects from this medication. He is requesting pain medication if possible today. Patient is on Suboxone therapy from an outside provider. Patient was previously arrested for drug charges and held in the [facility]. His John has been reviewed. Review of Systems: General: No recent weight changes, no fever, no sleep disturbances Respiratory: No cough, no shortness of air, no recurring pulmonary infections Cardiovascular/peripheral vascular: No chest pain, no palpitations, no edema, no shortness of breath Gastrointestinal: No new onset incontinence, normal bowel movements reported Genitourinary: No new onset incontinence Musculoskeletal: Low back pain Psychiatric: [Normal mood/affect] Neurological: [Denies weakness in extremities], [denies balance issues] Objective:: Physical Exam: General: Alert and oriented x3, no acute distress, pleasant and cooperative Lungs: Respirations even and unlabored, symmetrical chest expansion Eyes: PERRL Musculoskeletal: Flexion and extension of lumbar [spine] somewhat guarded secondary to pain, [antalgic gait noted] Neurological: Speech clear, no gross sensory deficit Assessment:: Degenerative disc disease of lumbar spine with lumbar radiculopathy symptoms Plan:: Patient continues to experience significant pain in his back with limited range of motion. I have discussed with the patient that it may be beneficial for a lead revision due to the one lead moving and being unable to reprogram. Risk and benefits were discussed with the patient and he would like to proceed forward with this plan of care. I will refill the patient's tizanidine 4 mg 3 times daily and diclofenac 75 mg twice a day and also send in a 5-day supply of prednisone 20 mg twice a day. Patient will be scheduled for a lead revision of his spinal cord stimulator implant and we will contact him once we have insurance approval for this procedure. Patient has been instructed to contact the clinic with any concerns before the next appointment. Dr. Strong has reviewed this note and agrees with this plan of care. This note was dictated using voice recognition software and make contain errors or omissions. [facility] Disclaimer: The information contained in this section may have been updated after the patient was seen, as this information can be updated by other users. Medical History Abnormal ECG Abnormal PFT Chest pain COPD (chronic obstructive pulmonary disease) DJD (degenerative joint disease) Dyspnea on exertion Left bundle branch block (LBBB) Lung nodule Mild chronic obstructive pulmonary disease Sleep apnea Solitary pulmonary nodule Stopped smoking with greater than 30 pack year history Tobacco abuse counseling Tobacco abuse disorder Surgical History No significant past surgical history Family History Other Cancer Diabetes Social History Smoking Status: Current ever
[2022-10-31 14:50] VITALS: BP 126/67; PULSE 102; RESP 18; O2SAT 96; BMI 26.4
== END | disposition home or self-care (01) ==
PROVIDERS: PCP Emergency Medicine; Visit Provider Nurse Practitioner Family
DX: M51.16 Intervertebral disc disorders with radiculopathy, lumbar region (principal)
CPT/HCPCS: 99212; G0463

== ENCOUNTER → 2022-11-02 12:59 | Outpatient (CLI) | payer MEDICAID, SELFPAY ==
--- NOTE | 2022-11-02 13:12 | XR_ITS ---
FINAL REPORT CLINICAL HISTORY: . back pain, r/o stimulator lead displacement COMPARISON: None FINDINGS: 5 views of the lumbar spine were obtained. There is no evidence of fracture or dislocation. The vertebral alignment is normal. Moderate degenerative change. Multilevel osteophytes. There is mild leftward curvature. 4 views of the thoracolumbar thoracic spine were obtained. There is no evidence of fracture or dislocation. Vertebral alignment is normal. There are moderate degenerative changes. Multilevel osteophytes are noted. Stimulator is present with the tip at the superior aspect of T7. IMPRESSION: Degenerative changes without acute bony abnormality. Stimulator tip superior aspect of T7. Reviewed, Interpreted and Dictated by Kiran Nichols III, MD Transcribed by Ila Zazueta Authenticated and [facility]
== END ==
PROVIDERS: PCP Emergency Medicine; Visit Provider Nurse Practitioner Family
DX: M54.6 Pain in thoracic spine (principal); M54.50 Low back pain, unspecified
CPT/HCPCS: 72084

== ENCOUNTER → 2022-12-02 23:42 | Outpatient (CLI) | payer MEDICAID, SELFPAY ==
[2022-12-02 19:04] LABS: Barbiturates Screen,Urine Negative ng/ml (<200)
[2022-12-02 19:07] LABS: Benzodiazepines Screen,Urine Positive ng/ml (<200); Cocaine Screen,Urine Negative ng/ml (<300)
[2022-12-02 19:08] LABS: Cannabinoid Screen,Urine Negative ng/ml (<50)
[2022-12-02 19:09] LABS: Methadone Screen,Urine Negative ng/ml (<300); Phencyclidine Screen,Urine Negative ng/ml (<25)
[2022-12-02 19:10] LABS: Opiate Screen,Urine Positive ng/ml (<300)
[2022-12-02 20:21] LABS: Amphetamine/Metha Screen,Urine Positive ng/ml (<1000)
== END ==
PROVIDERS: PCP Emergency Medicine; Visit Provider Emergency Medicine
DX: Z79.899 Other long term (current) drug therapy (principal)
CPT/HCPCS: 80305

== ENCOUNTER 2024-09-16 09:57 | Emergency (ER) | payer MEDICAID, SELFPAY ==
[2024-09-16] VITALS (8 sets, daily range): BP systolic 132–164; BP diastolic 89–128; PULSE 108–119; RESP 17–20; TEMP 36.3–36.9; O2SAT 95–98; BMI 23.1
--- NOTE | 2024-09-16 10:03 | ECG_ITS ---
APPROVED REPORT Exam: Resting ECG HR:113 bpm ECG Measurements Heart Rate 113 AXES GA 164 P 48 QRSd 159 QRS -19 QT 379 T 129 QTc 446 Conclusion SINUS TACHYCARDIA LEFT ATRIAL ENLARGEMENT [-0.15mV P-WAVE IN V1/V2] LEFT BUNDLE BRANCH BLOCK [120+ ms QRS DURATION, 80+ ms Q/S IN V1/V2, 85+ ms R IN I/aVL/V5/V6] ABNORMAL ECG UNCONFIRMED REPORT Electronically signed by : ARIK JOSEPH, 09/17/2024 06:34:42
--- NOTE | 2024-09-16 10:12 | XR_ITS ---
FINAL REPORT CLINICAL HISTORY: shortness of breath COMPARISON: 10/13/2021 FINDINGS: PA and lateral views of the chest were obtained. There are increased pulmonary markings with pulmonary vascular congestion. No focal infiltrate. There are trace bilateral pleural effusions. There is borderline cardiomegaly. IMPRESSION: Findings compatible with mild CHF. Reviewed, Interpreted and Dictated by Estuardo Briones MD Transcribed by Ila Zazueta Authenticated and [facility]
--- NOTE | 2024-09-16 10:17 | ED_ITS ---
<Statement entered by Dakota Barraza MD - 09/16/24 15:46> TATA Attestation I was consulted by the TATA, and we discussed the complexity of problems being addressed. I approved the treatment and management plan for this patient's care in the emergency department, thus performing a substantial portion of the medical decision making. Dakota Barraza MD Discharge Plan Disposition Patient Disposition: Left Against Medical Advice Prescriptions Prescriptions: No Action diazepam 5 mg tablet 10 mg PO DIRECTED Qty: 120 2RF Rx Instructions: Take 1 tablet BID and 2 tablets QHS albuterol sulfate 90 mcg/actuation HFA aerosol inhaler 1 inh IH QID PRN (Reason: shortness of breath or wheezing) 90 Days Qty: 8.5 12RF trazodone 150 mg tablet See Rx Instructions .ROUTE .COMPLEX Qty: 30 2RF Dose Instruction: TAKE ONE TABLET BY MOUTH AT BEDTIME Rx Instructions: TAKE ONE TABLET BY MOUTH AT BEDTIME sildenafil 25 mg tablet See Rx Instructions .ROUTE .COMPLEX Qty: 40 0RF Dose Instruction: TAKE 1 TO 2 TABLETS BY MOUTH 30 MINUTES TO 4 HOURS PRIOR TO SEXUAL ACTIVITY NEEDED Rx Instructions: TAKE 1 TO 2 TABLETS BY MOUTH 30 MINUTES TO 4 HOURS PRIOR TO SEXUAL ACTIVITY NEEDED pantoprazole 40 mg tablet,delayed release (DR/EC) See Rx Instructions .ROUTE .COMPLEX Qty: 30 0RF Dose Instruction: TAKE ONE TABLET BY MOUTH ONCE A DAY Rx Instructions: TAKE ONE TABLET BY MOUTH ONCE A DAY lisinopril-hydrochlorothiazide 20-25 mg tablet See Rx Instructions .ROUTE .COMPLEX Qty: 30 0RF Dose Instruction: TAKE ONE TABLET BY MOUTH EVERY MORNING Rx Instructions: TAKE ONE TABLET BY MOUTH EVERY MORNING tiotropium-olodaterol 4 GM mist 2 puff IH DAILY (DME) blood pressure monitor Kit See Rx Instructions MISCELLANEOUS Rx Instructions: As directed atorvastatin 10 mg tablet 10 mg PO DAILY Rx Instructions: TAKE ONE TABLET BY MOUTH AT BEDTIME quetiapine 25 mg tablet See Rx Instructions .ROUTE .COMPLEX Rx Instructions: TAKE ONE TABLET BY MOUTH AT BEDTIME tizanidine 4 MG tablet 4 mg PO TID Qty: 90 0RF diclofenac sodium 75 MG tablet,delayed release (DR/EC) 75 mg PO BID Qty: 60 0RF sulfamethoxazole-trimethoprim [Bactrim DS] 800-160 mg tablet 1 tab PO Q12H Qty: 14 0RF Referrals Follow up/Referrals: Russ Lloyd MD [Staff Physician, Cardiology] - See instructions Provider,MD Kathy [Primary Care Provider, Medical] - See instructions Max Dawkins MD [Physician, Pulmonology] - See instructions Kal Metz MD [Staff Physician, Family Practice] - See instructions Clinical Impressions Clinical Impression: COPD (chronic obstructive pulmonary disease), CHF (congestive heart failure) Instructions Patient Instructions: Heart Failure, DI for Chronic Obstructive Pulmonary Disease, DI for Shortness of Breath Print Language Print Language: Bruneian Discharge ED Provider: Dakota Barraza General Chief Complaint: Shortness of Breath/Dyspnea Stated Complaint: SOA, Time Seen by Provider: 09/16/24 10:03 Mode of Arrival: Ambulatory Source of Information: Patient Description of Symptoms (Recalled from ER Triage Doc. by RN): Pt reports SOA with dry cough on and off for the past week. Pt states symptoms worse today. Pt has Hx of COPD. Pt currently denies any pain. History of Present Illness HPI narrative: 58-year-old male presents to the ED today with complaint of shortness of air for a week. He states that it has gotten worse than better. He says that it got worse last night and he came for evaluation this morning. He does have history of COPD. He takes albuterol inhaler and another one but he is not sure the name of it. He does have hypertension and takes bisoprolol. He has had cough but no production of sputum. No fevers, no chills, no nausea vomiting or diarrhea. Patient complaining that he had a panic attack and got in the car and the heat was on and made him more short of breath and this attributed to his shortness of air. Patient did recently get out of group home. Patient denies any chest pain. Patient does have family member at bedside. Related Data Home Medications ?Medication ?Instructions ?Recorded ?Confirmed tiotropium 2.5 mcg-olodaterol 2.5 2 puff inhalation DA DALE Breathing 07/06/21 12/02/22 mcg/actuation mist for inhalation problems blood pressure monitor 02/15/22 12/02/22 atorvastatin 10 mg tablet 10 mg PO DAILY Cholesterol 0 04/01/22 12/02/22 quetiapine 25 mg tablet See Rx Instructions .Route 0 08/17/22 12/02/22 .COMPLEX MOOD Previous Rx's ?Medication ?Instructions ?Recorded albuterol sulfate 90 mcg/actuation 1 inh inhalation QI D PRN shortness 08/16/22 aerosol inhaler of breath or wheezing 90 day s #8.5 grams diclofenac sodium 75 mg 75 mg PO BID Pain #60 tabs 0 10/31/22 tablet,delayed release tizanidine 4 mg tablet 4 mg PO TID muscle relaxer # 90 tabs 10/31/22 trazodone 150 mg tablet See Rx Instructions .Route 0 11/11/22 .COMPLEX #30 tabs sulfamethoxazole 800 1 tab PO Q12H #14 tabs 11/25 mg-trimethoprim 160 mg tablet (Bactrim DS) diazepam 5 mg tablet 10 mg (2 x 5 mg) PO DIREC IVONNE 12/02/22 Held on 12/22/22. NERVES #120 tabs Instructions: Doctor's Order sildenafil 25 mg tablet See Rx Instructions .Route 1 .COMPLEX #40 tabs pantoprazole 40 mg tablet,delayed See Rx Instructions .Route 02/09/23 release .COMPLEX #30 tabs lisinopril 20 See Rx Instructions .Route 0 04/12/23 mg-hydrochlorothiazide 25 mg tablet .COMPLEX #30 tabs Allergies Allergy/AdvReac Type Severity Reaction Status Date / Time No Known Allergies Allergy Verified 12/02/22 13:16 [facility] Disclaimer: The information contained in this section may have been updated after the patient was seen, as this information can be updated by other users. Medical History Abnormal ECG Abnormal PFT Chest pain COPD (chronic obstructive pulmonary disease) DJD (degenerative joint disease) Dyspnea on exertion GERD (gastroesophageal reflux disease) HTN (hypertension) Left bundle branch block (LBBB) Lung nodule Mild chronic obstructive pulmonary disease Sleep apnea Solitary pulmonary nodule Stopped smoking with greater than 30 pack year history Tobacco abuse counseling Tobacco abuse disorder Surgical History No significant past surgical history Family History Other Cancer Diabetes Social History Smoking Status: Current every day smoker tobacco type: e-cigarettes second hand exposure: Yes alcohol intake: former substance use type: former substance user and heroin current occupational status: unemployed and other Travel in the last 8 weeks?: None household members: none housing: apartment caffeine: Yes Have you lived/traveled outside US in past 30 days?: No Contact w/someone who lives/traveled outside US past 30 days?: No Exposure to someone with infectious disease in past 14 days?: No Do you have a fever (greater than 100.4 F or 38 C)?: No Have you tested positive for COVID-19?: No Exposed to someone with COVID-19 in past 14 days?: No Do you have a sore throat?: No Do you have a cough?: No Do you have any weakness?: No Do you have any diarrhea?: No Are you experiencing any unusual bleeding?: No Do you have any muscle aches/pain?: No Do you have any abdominal pain?: No Are you experiencing loss of taste or smell?: No Other Medical History Have you received the Flu Vaccine for this season: No Have you received the Pneumonia Vaccine: No ROS Obtained: Yes Systems reviewed as appropriate & no additional complaints except as documented Constitutional Constitutional: Reports as per HPI Physical Exam General General appearance: alert and in no apparent distress Head Head exam: normocephalic Eye Eye exam: Present normal appearance and PERRL ENT ENT exam: Present normal oropharynx and mucous membranes moist Neck Neck exam: Present trachea midline Chest Chest inspection: Present normal inspection and symmetric chest wall rise Respiratory Respiratory exam: Present normal lung sounds bilaterally (uppers) and other (lower) Cardiovascular Cardiovascular exam: Present normal rhythm, tachycardia, normal heart sounds, +S1 and +S2 Abdominal Exam Abdominal exam: Present soft and normal bowel sounds Extremities Exam Extremities exam: Present normal inspection, full ROM and normal capillary refill Neurological Exam Neurological exam: Present alert, oriented X3 and normal gait Psychiatric Psychiatric exam: Present normal affect and normal mood Skin Skin exam: Present warm and dry HEART Score HEART Score HEART Score assessment performed?: Yes History (anamnesis): Slightly suspicious ECG: Non-specific disturbance Age: 45-65 years Risk factors: 1-2 risk factors Troponin: 1-3x normal limit HEART Score: 4 Critical Care Critical Care Time Critical Care Time: No Medical Decision Making John Inquiry Pt receiving controlled substance: No John was queried for this patient: No Vital Signs Vital Signs: 09/16/24 10:05 09/16/24 10:15 09/16/24 10:30 Temperature 97.4 F L Temperature Source Oral Pulse Rate 108 H 110 H Pulse Rate [Left] 119 H Respiratory Rate 18 Blood Pressure 150/96 H 138/91 H Blood Pressure [Right Arm] 150/96 H Blood Pressure Mean 106 Blood Pressure Mean [Right Arm] 114 Blood Pressure Source Blood Pressure Source [Right Arm] Automatic Cuff Blood Pressure Position 02 Sat by Pulse Oximetry 96 96 98 Oxygen Delivery Method Room Air 09/16/24 11:01 09/16/24 11:30 09/16/24 12:47 Temperature 98.4 F Temperature Source Oral Pulse Rate 113 H 114 H 113 H Pulse Rate [Left] Respiratory Rate 20 18 Blood Pressure 164/128 H 149/106 H 132/89 Blood Pressure [Right Arm] Blood Pressure Mean 139 120 Blood Pressure Mean [Right Arm] Blood Pressure Source Automatic Cuff Blood Pressure Source [Right Arm] Blood Pressure Position Sitting 02 Sat by Pulse Oximetry 97 96 95 Oxygen Delivery Method Room Air 09/16/24 13:13 09/16/24 13:16 Temperature 97.8 F Temperature Source Oral Pulse Rate 109 H 109 H Pulse Rate [Left] Respiratory Rate 20 17 Blood Pressure 147/89 H 147/89 H Blood Pressure [Right Arm] Blood Pressure Mean 108 Blood Pressure Mean [Right Arm] Blood Pressure Source Automatic Cuff Blood Pressure Source [Right Arm] Blood Pressure Position Sitting 02 Sat by Pulse Oximetry 96 Oxygen Delivery Method Room Air Lab Data Labs: Lab Results 09/16/24 10:05: WBC 8.2, RBC 3.90 L, Hgb 12.2 L, Hct 36.5 L, MCV 93.6, MCH 31.3 H, MCHC 33.4, RDW 13.2, Plt Count 292, MPV 9.0, Neut % (Auto) 70.9, Lymph % (Auto) 22.9, [place] % (Auto) 4.0, Eos % (Auto) 1.3, Baso % (Auto) 0.7, Neut # (Auto) 5.8, Lymph # (Auto) 1.9, [place] # (Auto) 0.3, Eos # (Auto) 0.1, Baso # (Auto) 0.1, D-Dimer 0.57 H, Sodium 140, Potassium 3.7, Chloride 108 H, Carbon Dioxide 28, Anion Gap 7.7, BUN 21 H, Creatinine 1.20, Estimated Creat Clear 75, Estimated GFR 62, Est GFR ( Amer) 75, Glucose 122 H, Calcium 9.8, M agnesium 2.4 H, Total Bilirubin 1.0, AST 29, ALT 27, Alkaline Phosphatase 105, T roponin I 0.05 H, NT-Pro-B Natriuret Pep 6290 H, Total Protein 7.7, Albumin 4.3, Globulin 3.4 H, Albumin/Globulin Ratio 1.3, Lipase 27, HCV Ab ABHINAV w/Rflx PCR Qn Negative, HIV Ag/Ab Combo Qual Negative 09/16/24 11:37: VBG pH 7.31, VBG pCO2 36.7, VBG pO2 52.5 H, VBG HCO3 17.9 L, VBG Total CO2 19.0 L, VBG O2 Saturation 83.1 H, VBG Base Excess -8.5 L, VBG Lactic Acid 1.7 09/16/24 11:55: Troponin I 0.04 H 09/16/24 10:05 09/16/24 10:05 Response Orders (Tests/Meds): ED MEDICATIONS Discontinued Medications Generic Name Dose Route Start Last Admin Trade Name Freq PRN Reason Stop Dose Admin Albuterol/Ipratropium 9 ml 09/16/24 10:12 09/16/24 10:22 Ipratropium/Albuterol 3 Ml Neb IH 09/16/24 10:13 9 ml ONCE ONE Administration Furosemide 40 mg 09/16/24 11:38 09/16/24 11:51 Furosemide 40mg/4ml Vial IV 09/16/24 11:39 40 mg ONCE ONE Administration Magnesium Sulfate 2 gm in 50 mls @ 50 mls/hr 09/16/24 10:12 09/16/24 10:22 Magnesium Sulfate 2gm/50ml Premix IV 09/16/24 11:11 50 mls/hr ONCE ONE Administration Methylprednisolone Sodium Succinate 125 mg 09/16/24 10:12 09/16/24 10:22 Methylprednisolone Sod Succ 125mg Vial IV 09/16/24 10:13 125 mg ONCE ONE Administration ORDERS Category Date Time Status Chest XR 2 view (NOT portable) [XR chest 2V] Stat Exams 09/16/24 10:12 Completed BNP [NT Pro Brain Natriuretic Pep.] Stat Lab 09/16/24 10:05 Completed CBC [Complete Blood Count Auto Diff] Stat Lab 09/16/24 10:05 Completed Comprehensive Metabolic Panel Stat Lab 09/16/24 10:05 Completed D-Dimer Stat Lab 09/16/24 10:05 Completed HIV Combo Stat Lab 09/16/24 10:05 Completed Hepatitis C Ab Qual. W/ RFX Stat Lab 09/16/24 10:05 Completed Lipase Stat Lab 09/16/24 10:05 Completed Magnesium Stat Lab 09/16/24 10:05 Completed Trop I [Troponin I] Stat Lab 09/16/24 10:05 Completed Troponin I Q3H Lab 09/16/24 11:55 Completed VBG [Venous Blood Gas] Stat RT 09/16/24 11:37 Completed ECG Data Tracing #1: ECG initial impression date: 09/16/24 Arrhythmias present: sinus tach Conduction abnormalities present: LBBB Additional Comments: EKG showsleft atrial enlargement MDM Narrative Medical Decision Narrative: patient is a 58-year-old male presenting to the emergency department for evaluation of shortness of breath that started 1 week ago and got worse last night. Patient is hemodynamically stable and nontoxic-appearing upon arrival, afebrile. Differential diagnosis includes COPD exacerbation, CHF exacerbation, CAD, viral illness among others. Workup will be conducted with hematologic labs, specific imaging, provocative tests. Initial inventions include mag, DuoNebs, Solu-Medrol. Initial workup reviewed by me D-dimer showed 0.57 but age-adjusted him out for a PE, BNP was elevated above 6000. Trope was 0.05 and 0.04. Imaging informally interpreted by me and remarkable for mild pleural effusion. See radiology read for official report. Patient was made aware. Dr. Barraza and I discussed admission for CHF exacerbation but patient does not want to stay. I discussed with him risks and benefits versus admission and leaving AGAINST MEDICAL ADVICE. Patient still wants to leave. He said he is happy to follow-up with Dr. Lloyd's office and Dr. Prieto office but he does not want to stay in the hospital for any treatment. He says he has already been told he has congestive heart failure and he already has follow-up with the cs associate. He is already seen Dr. Lloyd's office and wants to just follow-up the office. Dr. Barraza and I both saw this patient while in the ED. Patient is leaving AGAINST MEDICAL ADVICE.
[2024-09-16 10:19] LABS: Basophils # 0.1 K/mm3 (0-0.2); Basophils % 0.7 % (0.1-2.0); Eosinophils # 0.1 Kmm3 (0.0-0.4); Eosinophils % 1.3 % (0.1-12.0); Hematocrit 36.5 % (42.0-52.0); Hemoglobin 12.2 g/dL (14.1-18.0); Immature Granulocytes # 0.02 10^3uL; Immature Granulocytes % 0.2 %; Lymphocytes # 1.9 K/mm3 (0.7-4.5); Lymphocytes % 22.9 % (10-50); Mean Corpuscular HGB Conc 33.4 g/dL (31.8-35.4); Mean Corpuscular Hemoglobin 31.3 pg (27.0-31.2); Mean Corpuscular Volume 93.6 fl (80-94); Monocytes # 0.3 K/mm3 (0.1-1.0); Neutrophils # 5.8 K/mm3 (1.8-7.8); Neutrophils % 70.9 % (37.0-80.0); Nucleated Red Blood Cells # 0 10^3/uL; Nucleated Red Blood Cells % 0 %; Platelet Count 292 K/mm3 (142-424); Red Cell Distribution Width 13.2 % (11.5-17.5); Red Cell Distribution Width-SD 44.7 fL; White Blood Count 8.2 K/mm3 (4.8-10.8)
[2024-09-16] MEDS: IPRATROPIUM/ALBUTEROL 3 ML NEB 9 ML IH (10:22)
[2024-09-16] MEDS: MAGNESIUM SULFATE IN WATER 2 GM/50 ML PIGGYBACK IV (10:22)
[2024-09-16] MEDS: METHYLPREDNISOLONE SOD SUCC 125MG VIAL 125 MG IV (10:22)
[2024-09-16 10:26] LABS: Alanine Aminotransferase 27 U/L (12-78); Albumin Level 4.3 g/dl (3.5-5.0); Albumin/Globulin Ratio 1.3 (1.1-1.8); Alkaline Phosphatase 105 U/L (38-126); Aspartate Amino Transferase 29 U/L (17-59); Blood Urea Nitrogen 21 mg/dl (9-20); Calcium 9.8 mg/dl (8.4-10.2); Carbon Dioxide 28 mmol/L (22.0-30.0); Chloride 108 mmol/L (98-107); Creatinine Clearance Estimated 75 mL/min (50-200); Estimated Glomerular Filt Rate 62 ml/min (>60); GFR (African American) 75 ML/MIN (>60); Globulin 3.4 g/dL (1.3-3.2); Glucose 122 mg/dl (74-100); Sodium 140 mmol/L (136-145); Total Protein,Serum 7.7 g/dl (6.3-8.2)
[2024-09-16 10:27] LABS: Anion Gap 7.7 mEq/L (5-15); Lipase 27 U/L (23-300); Magnesium 2.4 mg/dl (1.6-2.3); Potassium 3.7 mmoL/L (3.5-5.1)
--- OUTSIDE RECORDS SUMMARY | 2024-09-16 10:27 | XMS_ITS | Clinical Summary ---
Author Organization Healthcare Address [address] [place] [address] Care Team Providers Care Appeals Referee Name Role Phone Uriel Damon MD Primary Care Provider [phone] Allergies Active Allergy Reactions Criticality Noted Date Comments Gabapentin Other - please docum ent in the comment field Low 10/15/2021 Medications traZODone (Desyrel) 150 MG tablet 09/17/2021 Active tiZANidine (Zanaflex) 4 MG tablet 09/17/2021 Active Stiolto Respimat 2.5-2.5 MCG/ACT aerosol solution inhaler 07/06/2021 Active sildenafil (Viagra) 25 MG tablet 08/20/2021 Active QUEtiapine (SEROquel) 25 MG tablet 07/06/2021 Active pantoprazole (Protonix) 40 MG EC tablet 07/06/2021 Active lisinopril 10 MG tablet 07/06/2021 Active levoFLOXacin (Levaquin) 500 MG tablet 10/14/2021 Active diclofenac (Voltaren) 75 MG EC tablet 09/17/2021 Active diazePAM (Valium) 5 MG tablet 10/08/2021 Active buprenorphine-nalo xone (Suboxone) 8-2 MG SL tablet 10/12/2021 Ac tive atorvastatin (Lipitor) 10 MG tablet 07/06/2021 Active ProAir HFA 108 (90 Base) MCG/ACT inhaler 10/14/2021 Active Social History Tobacco Use Types Packs/Day Years Used Date Smoking Tobacco: Former Smokeless Tobacco: Current Sex and Gender Information Value Date Recorded Sex Assigned at Not on file Legal Sex Male 8:46 PM EDT Gender Identity Not on file Sexual Orientation Not on file Last Filed Vital Signs Vital Sign Reading Time Taken Comments Blood Pressure 115/73 10/15/2021 8:19 AM EDT Pulse 86 10/16/2019 8:53 AM EDT Temperature 36.9 C (98.5 F) 10/16/2019 8:53 AM EDT Respiratory Rate - - Oxygen Saturation - - Inhaled Oxygen Concentration - - Weight 104 kg (229 lb 15.7 oz) 10/16/2019 8:53 A M EDT Height 185.4 cm (6' 1 ) 10/16/2019 8:53 AM EDT Body Mass Index 30.34 10/16/2019 8:53 AM EDT Plan of Treatment Health Maintenance Due Date Last Done Comments [facility]-Depression Screening 1965 [facility]-Infant/Child/Adol SDOH Screenings 1965 [facility]- SDOH Screenings 10/18/1983 [facility]-Adult SDOH Screenings 10/18/1983 [facility]-DTaP,Tdap,and Td Vaccine s (1 - Tdap) 1984 [facility]-Hepatitis B Vaccines (1 of 3 - 19+ 3-dose series) 1984 CT Colonography 2010 Colonoscopy 2010 FIT-DNA 2010 FIT 2010 FOBT 2010 Sigmoidoscopy 2010 [facility]-Colorectal Cancer Screening 2010 [facility]-Pneumococcal Vaccine: 50 + Years (1 of 1 - PCV) 10/18/2015 [facility]-Zoster Vaccines (1 of 2) 10/18/2015 [id number] Vaccine ( season) 2023 05/26/2021, 07/15/2020, 06/17/2020 [facility]-Influenza Vaccine (Seaso n Ended) 2024 03/04/2020 [facility]-Hepatitis A Vaccines Aged Out 04/19/2018 No longer eligible based on patient's age to complete this topic HPV Vaccines Aged Out No longer eligi ble based on patient's age to complete this topic [facility]-HIB Vaccines Aged Out No longer e ligible based on patient's age to complete this topic [facility]-IPV Vaccines Aged Out No longer e ligible based on patient's age to complete this topic [facility]-Rotavirus Vaccines Aged Out No lo nger eligible based on patient's age to complete this topic [place] [place] [id number] [facility] MEDICAID Care Teams Appeals Referee Relationship Specialty Start Date End Date Uriel Damon MD [address] [place] [address] [place] [address] PCP - General 08/07/20
--- OUTSIDE RECORDS SUMMARY | 2024-09-16 10:27 | XMS_ITS | Encounter Summary ---
Author Organization Healthcare Address [address] [place] [address] Care Team Providers Care Water Quality Assistant Name Role Phone Uriel Damon MD Primary Care Provider [phone] Encounter Details Date Type Department Care Team (Late st Contact Info) Description 10/09/2019 Orders Only External Location [address] [place] [address] Provider, External Social History Tobacco Use Types Packs/Day Years Used Date Smoking Tobacco: Never Assessed Sex and Gender Information Value Date Recorded Sex Assigned at Not on file Legal Sex Male 8:46 PM EDT Gender Identity Not on file Sexual Orientation Not on file documented as of this encounter Plan of Treatment Not on file documented as of this encounter Procedures Procedure Name Priority Date/Time Associated Diagnosis Comments XR MSK OUTSIDE IMAGES 10/09/2019 10:39 AM EDT documented in this encounter Results * XR MSK OUTSIDE IMAGES (10/09/2019 10:39 AM EDT) Anatomical Region Laterality Modality Radiographic Karina ging 10/09/2019 10:3 9 AM EDT us External Provider IMG XR PROCEDURES Final Result documented in this encounter Visit Diagnoses Not on filedocumented in this encounter Care Teams Water Quality Assistant Relationship Specialty Start Date End Date Uriel Damon MD [address] [place] [address] PCP - General 08/07/20 documented as of this encounter
--- OUTSIDE RECORDS SUMMARY | 2024-09-16 10:27 | XMS_ITS | Encounter Summary ---
Author Organization Healthcare Address [address] [place] [address] Care Team Providers Care C Python Developer Name Role Phone Uriel Damon MD Primary Care Provider [phone] Encounter Details Date Type Department Care Team (Late st Contact Info) Description 10/09/2019 Orders Only External Location [address] [place] [address] Provider, External Social History Tobacco Use Types [...] on filedocumented in this encounter Care Teams C Python Developer Relationship Specialty Start Date End Date Uriel Damon MD [address] [place] [address] PCP - General 08/07/20 documented as of this encounter
--- OUTSIDE RECORDS SUMMARY | 2024-09-16 10:27 | XMS_ITS | Encounter Summary ---
Author Organization Healthcare Address [address] [place] [address] Care Team Providers Care Colors Custodian Name Role Phone Uriel Damon MD Primary Care Provider [phone] Encounter Details Date Type Department Care Team (Late st Contact Info) Description 10/09/2019 Orders Only External Location [address] [place] [address] Provider, External Social History Tobacco Use Types [...] Diagnosis Comments XR MSK OUTSIDE IMAGES 10/09/2019 10:18 AM EDT documented in this encounter Results * XR MSK OUTSIDE IMAGES (10/09/2019 10:18 AM EDT) Anatomical Region Laterality Modality Radiographic Karina ging 10/09/2019 10:1 8 AM EDT us External Provider IMG XR PROCEDURES Final Result documented in this encounter Visit Diagnoses Not on filedocumented in this encounter Care Teams Colors Custodian Relationship Specialty Start Date End Date Uriel Damon MD [address] [place] [address] PCP - General 08/07/20 documented as of this encounter
--- OUTSIDE RECORDS SUMMARY | 2024-09-16 10:27 | XMS_ITS | Encounter Summary ---
Author Organization Healthcare Address [address] [place] [address] Care Team Providers Care Process Engineer Name Role Phone Uriel Damon MD Primary Care Provider [phone] Encounter Details Date Type Department Care Team (Late st Contact Info) Description 10/09/2019 Orders Only External Location [address] [place] [address] Provider, External Social History Tobacco Use Types [...] Diagnosis Comments XR MSK OUTSIDE IMAGES 10/09/2019 12:11 PM EDT documented in this encounter Results * XR MSK OUTSIDE IMAGES (10/09/2019 12:11 PM EDT) Anatomical Region Laterality Modality Radiographic Karina ging 10/09/2019 12:1 1 PM EDT us External Provider IMG XR PROCEDURES Final Result documented in this encounter Visit Diagnoses Not on filedocumented in this encounter Care Teams Process Engineer Relationship Specialty Start Date End Date Uriel Damon MD [address] [place] [address] PCP - General 08/07/20 documented as of this encounter
--- OUTSIDE RECORDS SUMMARY | 2024-09-16 10:27 | XMS_ITS | Encounter Summary ---
Author Organization Healthcare Address [address] [place] [address] Care Team Providers Care Site Worker Name Role Phone Uriel Damon MD Primary Care Provider [phone] Encounter Details Date Type Department Care Team ([facility] st Contact Info) Description 06/07/2021 Orders Only External Location [address] [place] [address] Uriel Damon MD [address] [place] [address] Social History Tobacco Use Types Packs/Day Years [...] Procedure Name Priority Date/Time Associated Diagnosis Comments MR MSK OUTSIDE IMAGES 06/07/2021 10:47 AM EDT documented in this encounter Results * MR MSK OUTSIDE IMAGES (06/07/2021 10:47 AM EDT) Anatomical Region Laterality Modality Magnetic Resonan ce 06/07/2021 10:4 7 AM EDT Uriel Damon MD IMG MRI PROCEDURES Final Res ult documented in this encounter Visit Diagnoses Not on filedocumented in this encounter Care Teams Site Worker Relationship Specialty Start Date End Date Uriel Damon MD [address] [place] [address] PCP - General 08/07/20 documented as of this encounter
--- OUTSIDE RECORDS SUMMARY | 2024-09-16 10:27 | XMS_ITS | Encounter Summary ---
Author Organization Healthcare Address [address] [place] [address] Care Team Providers Care Emergency Care Tech Name Role Phone Uriel Damon MD Primary Care Provider [phone] Encounter Details Date Type Department Care Team (Late st Contact Info) Description 10/10/2019 Orders Only External Location [address] [place] [address] Provider, External Social History Tobacco Use Types [...] Associated Diagnosis Comments XR MSK OUTSIDE IMAGES 10/10/2019 3:03 PM EDT documented in this encounter Results * XR MSK OUTSIDE IMAGES (10/10/2019 3:03 PM EDT) Anatomical Region Laterality Modality Radiographic Karina ging 10/10/2019 3:03 PM EDT us External Provider IMG XR PROCEDURES Final Result documented in this encounter Visit Diagnoses Not on filedocumented in this encounter Care Teams Emergency Care Tech Relationship Specialty Start Date End Date Uriel Damon MD [address] [place] [address] PCP - General 08/07/20 documented as of this encounter
--- OUTSIDE RECORDS SUMMARY | 2024-09-16 10:27 | XMS_ITS | Encounter Summary ---
Author Organization Healthcare Address [address] [place] [address] Care Team Providers Care Coning Machine Operator Name Role Phone Uriel Damon MD Primary Care Provider [phone] Encounter Details Date Type Department Care Team (Late st Contact Info) Description 10/09/2019 Orders Only External Location [address] [place] [address] Provider, External Social History Tobacco Use Types [...] Diagnosis Comments XR [facility] OUTSIDE IMAGES 10/09/2019 10:14 AM EDT documented in this encounter Results * XR [facility] OUTSIDE IMAGES (10/09/2019 10:14 AM EDT) Anatomical Region Laterality Modality Radiographic Karina ging 10/09/2019 10:1 4 AM EDT us External Provider IMG XR PROCEDURES Final Result documented in this encounter Visit Diagnoses Not on filedocumented in this encounter Care Teams Coning Machine Operator Relationship Specialty Start Date End Date Uriel Damon MD [address] [place] [address] PCP - General 08/07/20 documented as of this encounter
[2024-09-16 10:30] LABS: D-Dimer 0.57 ug/mL (0.0-0.5)
[2024-09-16 10:39] LABS: Troponin I 0.05 ng/ml (0.00-0.034)
[2024-09-16 11:06] LABS: NT Pro Brain Natriuretic Pep. 6290 pg/mL (0-125)
[2024-09-16 11:37] LABS: HIV Combo NEGATIVE (Negative)
[2024-09-16 11:44] LABS: Hepatitis C Ab Qual. W/ RFX NEGATIVE (Negative)
[2024-09-16] MEDS: FUROSEMIDE 40MG/4ML VIAL 40 MG IV (11:51)
--- NOTE | 2024-09-16 11:58 | ECG_ITS ---
APPROVED REPORT Exam: Resting ECG HR:114 bpm ECG Measurements Heart Rate 114 AXES W[place] 160 P 51 QRSd 163 QRS 2 QT 389 T 128 QTc 457 Conclusion SINUS TACHYCARDIA LEFT ATRIAL ENLARGEMENT [-0.15mV P-WAVE IN V1/V2] LEFT BUNDLE BRANCH BLOCK [120+ ms QRS DURATION, 80+ ms Q/S IN V1/V2, 85+ ms R IN I/aVL/V5/V6] ABNORMAL ECG UNCONFIRMED REPORT Electronically signed by : ARIK JOSEPH, 09/17/2024 06:33:50
[2024-09-16 12:04] LABS: Lactate Venous 1.7 mmol/L (0.4-2.0); VBG Base Excess -8.5 mmol/L (-2.4-2.3); VBG HCO3 17.9 mmol/L (23-30); VBG Oxygen Saturation 83.1 % (50-70); VBG PCO2 36.7 mmol/L (35-51); VBG PH 7.31 mmol/L (7.31-7.41); VBG PO2 52.5 mmol/L (28-40)
[2024-09-16 12:29] LABS: Troponin I 0.04 ng/ml (0.00-0.034)
== END 2024-09-16 13:17 | disposition left against medical advice (07) ==
PROVIDERS: Nurse Practitioner; Emergency Provider Student in an Organized Health Care Education/Training Program
DX: J44.1 Chronic obstructive pulmonary disease with (acute) exacerbation; I44.7 Left bundle-branch block, unspecified; R00.0 Tachycardia, unspecified; I11.0 Hypertensive heart disease with heart failure; I50.9 Heart failure, unspecified; F17.290 Nicotine dependence, other tobacco product, uncomplicated
CPT/HCPCS: 71046; 80053; 82803; 83690; 83735; 83880; 84484; 85025; 85378; 86803; 87389; 93005; 96365; 96375; 99285; J1938; J2919; J3475